=== PATIENT | female | born 1930 | race Caucasian/White ===

== ENCOUNTER 2016-08-05 18:36 | Emergency (ER) | payer MEDICARE, OTHER ==
[2016-08-05] MEDS ORDERED: MORPHINE 2 MG/ML SYRINGE IVP STA (19:42)
[2016-08-05] MEDS ORDERED: MORPHINE 2 MG/ML SYRINGE ONE (19:56)
[2016-08-05] MEDS ORDERED: IOPAMIDOL-300 100 ML VIAL IVP ONE (20:38)
[2016-08-05] MEDS ORDERED: oxyCODONE/ACET 5/325 Prepack 4 PO STA (21:23)
[2016-08-05] MEDS ORDERED: oxyCODONE/ACET 5/325 Prepack 4 PO ONE (21:27)
== END 2016-08-05 21:51 | disposition home or self-care (01) ==
DX: R07.89 Other chest pain (principal); M54.6 Pain in thoracic spine; I48.92 Unspecified atrial flutter; Z79.01 Long term (current) use of anticoagulants; I25.10 Atherosclerotic heart disease of native coronary artery without angina pectoris; I11.0 Hypertensive heart disease with heart failure; I50.9 Heart failure, unspecified; K21.9 Gastro-esophageal reflux disease without esophagitis; Z86.73 Personal history of transient ischemic attack (TIA), and cerebral infarction without residual deficits; Z87.891 Personal history of nicotine dependence
CPT/HCPCS: 36415; 71275; 80053; 82550; 82553; 83690; 84484; 85025; 85610; 85730; 93005; 93010; 96374; 99283; 99284; Q9967

== ENCOUNTER 2016-08-07 | Outpatient (CLI) | payer MEDICARE, OTHER | END 2016-08-07 13:55 | disposition critical access hospital (66) | CPT/HCPCS: A0425; A0427 ==

== ENCOUNTER 2016-08-07 14:22 | Emergency (ER) | payer MEDICARE, OTHER ==
[2016-08-07] MEDS ORDERED: SODIUM CHLORIDE 0.9% 500 ML IV ONE (14:26)
[2016-08-07] MEDS ORDERED: diltiaZEM INJ 5 MG/ML VIAL IVP STA ×2 (14:26→15:21)
[2016-08-07] MEDS ORDERED: diltiaZEM INJ 5 MG/ML VIAL ONE ×2 (14:33→15:34)
[2016-08-07] MEDS ORDERED: diltiaZEM CD 120 MG CAPSULE PO STA (15:19)
[2016-08-07] MEDS ORDERED: ACETAMINOPHEN 1,000 MG/100 ML 100 ML IV STA (15:24)
[2016-08-07] MEDS ORDERED: LIDOCAINE PATCH 5% TOP STA (15:24)
[2016-08-07] MEDS ORDERED: LIDOCAINE PATCH 5% TOP ONE (15:33)
[2016-08-07] MEDS ORDERED: ACETAMINOPHEN 1,000 MG/100 ML 100 ML IV ONE (15:33)
[2016-08-07] MEDS ORDERED: MORPHINE 2 MG/ML SYRINGE IVP STA (17:41)
[2016-08-07] MEDS ORDERED: ONDANSETRON 4 MG/2 ML VIAL IVP STA (17:41)
[2016-08-07] MEDS ORDERED: PROMETHAZINE INJ 12.5 MG in SODIUM CHLORIDE 0.9% 50 ML IV STA (17:42)
[2016-08-07] MEDS ORDERED: PROPOFOL 200 MG/20 ML VIAL IVP ONE (17:43)
[2016-08-07] MEDS ORDERED: PROMETHAZINE 25 MG/1 ML VIAL ONE (17:43)
[2016-08-07] MEDS ORDERED: MORPHINE 2 MG/ML SYRINGE ONE (17:43)
[2016-08-07] MEDS ORDERED: PROPOFOL 200 MG/20 ML VIAL IVP STA (18:02)
== END 2016-08-07 18:53 | disposition home or self-care (01) ==
DX: I48.92 Unspecified atrial flutter (principal); I48.91 Unspecified atrial fibrillation; Z79.01 Long term (current) use of anticoagulants; I11.0 Hypertensive heart disease with heart failure; I50.9 Heart failure, unspecified; E78.00 Pure hypercholesterolemia, unspecified; I25.10 Atherosclerotic heart disease of native coronary artery without angina pectoris; Z87.891 Personal history of nicotine dependence
CPT/HCPCS: 36415; 80048; 84443; 84484; 85025; 92960; 93005; 93010; 94770; 96365; 96375; 96376; 99284; A9270; J0131

== ENCOUNTER 2016-08-11 16:07 | Outpatient (CLI) | payer MEDICARE, OTHER | END 2016-08-11 16:08 | disposition home or self-care (01) | DX: M54.6 Pain in thoracic spine (principal) ==

== ENCOUNTER 2016-09-08 07:17 | Outpatient (CLI) | payer MEDICARE, OTHER | END 2016-09-08 07:18 | disposition home or self-care (01) | DX: R60.9 Edema, unspecified (principal); I50.9 Heart failure, unspecified; I10 Essential (primary) hypertension; E55.9 Vitamin D deficiency, unspecified; Z51.81 Encounter for therapeutic drug level monitoring; I48.91 Unspecified atrial fibrillation; E87.1 Hypo-osmolality and hyponatremia; E78.5 Hyperlipidemia, unspecified; D53.9 Nutritional anemia, unspecified ==

== ENCOUNTER 2016-10-04 19:39 | Emergency (ER) | payer MEDICARE, OTHER ==
[2016-10-04] MEDS ORDERED: SODIUM CHLORIDE 0.9% 500 ML IV ONE (21:36)
== END 2016-10-04 22:18 | disposition home or self-care (01) ==
DX: J06.9 Acute upper respiratory infection, unspecified (principal); I11.0 Hypertensive heart disease with heart failure; I50.9 Heart failure, unspecified; E78.00 Pure hypercholesterolemia, unspecified; I25.10 Atherosclerotic heart disease of native coronary artery without angina pectoris; K21.9 Gastro-esophageal reflux disease without esophagitis; Z86.73 Personal history of transient ischemic attack (TIA), and cerebral infarction without residual deficits; Z85.828 Personal history of other malignant neoplasm of skin; Z87.891 Personal history of nicotine dependence

== ENCOUNTER 2016-12-21 07:09 | Outpatient (CLI) | payer MEDICARE, OTHER ==
[2016-12-21 11:01] LABS: BASOPHILS # (AUTO) 0.1 10^3/uL (0.0-0.1); EOSINOPHILS # (AUTO) 0.2 10^3/uL (0.0-0.7); EOSINOPHILS % (AUTO) 3.4 %; HCT - HEMATOCRIT 34.9 % (37.0-47.0); HGB - HEMOGLOBIN 11.8 g/dL (12.0-16.0); LYMPHOCYTES # (AUTO) 1.9 10^3/uL (1.5-3.5); MEAN CORPUSCULAR HGB CONC 33.8 g/dL (32.0-36.0); MEAN CORPUSCULAR VOLUME 88.7 fL (81.0-99.0); MEAN PLATELET VOLUME 8.3 fL (7.9-10.8); MONOCYTES # (AUTO) 0.6 10^3/uL (0.0-1.0); MONOCYTES % (AUTO) 8.5 %; NEUTROPHILS # (AUTO) 3.8 10^3/uL (1.5-6.6); NEUTROPHILS % (AUTO) 58.1 %; RED BLOOD COUNT 3.93 10^6/uL (4.20-5.40); UNCORRECTED WHITE BLOOD COUNT 6.6 x10^3/uL; WHITE BLOOD COUNT 6.6 x10^3/uL (4.8-10.8)
[2016-12-21 11:18] LABS: BUN - BLOOD UREA NITROGEN 13 mg/dL (6-20); CALCIUM 9.9 mg/dL (8.5-10.3); CARBON DIOXIDE - CO2 29 mmol/L (21-32); CHLORIDE 94 mmol/L (101-111); CHOL/HDL RATIO 2.2 (<4.4); CHOLESTEROL 175 mg/dL; CREATININE 0.8 mg/dL (0.4-1.0); GFR - MDRD 68 (>89); GLUCOSE 111 mg/dL (70-100); HDL CHOLESTEROL 80 mg/dL; LDL/HDL RATIO 0.9 (<4.4); POTASSIUM 4.2 mmol/L (3.5-5.0); SODIUM 132 mmol/L (135-145); TRIGLYCERIDES 121 mg/dL; VLDL CHOLESTEROL 24 mg/dL
== END 2016-12-21 07:10 | disposition home or self-care (01) ==
LOC: LAB.F 07:09
PROVIDERS: ATTEND Internal Medicine Cardiovascular Disease
DX: I48.1 Persistent atrial fibrillation (principal); E78.5 Hyperlipidemia, unspecified; I10 Essential (primary) hypertension
CPT/HCPCS: 36415; 80048; 80061; 85025

== ENCOUNTER 2017-07-11 13:15 | Outpatient (CLI) | payer MEDICARE, OTHER ==
[2017-07-11 17:57] LABS: BASOPHILS % (AUTO) 0.4 %; EOSINOPHILS % (AUTO) 0.1 %; HGB - HEMOGLOBIN 11.5 g/dL (12.0-16.0); LYMPHOCYTES # (AUTO) 1.7 10^3/uL (1.5-3.5); MEAN CORPUSCULAR HEMOGLOBIN 29.5 pg (27.0-31.0); MEAN CORPUSCULAR HGB CONC 33.4 g/dL (32.0-36.0); MEAN CORPUSCULAR VOLUME 88.1 fL (81.0-99.0); MEAN PLATELET VOLUME 8.8 fL (7.9-10.8); MONOCYTES # (AUTO) 0.7 10^3/uL (0.0-1.0); MONOCYTES % (AUTO) 5.8 %; NEUTROPHILS # (AUTO) 9.4 10^3/uL (1.5-6.6); NEUTROPHILS % (AUTO) 79.7 %; PLT - PLATELET COUNT 299 10^3/uL (130-450); RED BLOOD COUNT 3.89 10^6/uL (4.20-5.40); RED CELL DISTRIBUTION WIDTH 12.9 % (12.0-15.0); WHITE BLOOD COUNT 11.8 x10^3/uL (4.8-10.8)
[2017-07-11 18:05] LABS: ALBUMIN 3.3 g/dL (3.2-5.5); ALBUMIN/GLOBULIN RATIO 1.1 (1.0-2.2); ALKALINE PHOSPHATASE 75 IU/L (42-121); ALT ALANINE AMINOTRANSFERASE 19 IU/L (10-60); AST ASPARTATE AMINOTRANSFERASE 20 IU/L (10-42); BILIRUBIN,TOTAL 0.3 mg/dL (0.2-1.0); BUN - BLOOD UREA NITROGEN 12 mg/dL (6-20); CALCIUM 8.7 mg/dL (8.5-10.3); CARBON DIOXIDE - CO2 31 mmol/L (21-32); CHLORIDE 96 mmol/L (101-111); CREATININE 0.8 mg/dL (0.4-1.0); GFR - MDRD 68 (>89); GLUCOSE 101 mg/dL (70-100); SODIUM 131 mmol/L (135-145); TOTAL PROTEIN 6.3 g/dL (6.7-8.2)
== END 2017-07-11 13:16 | disposition home or self-care (01) ==
LOC: LAB.F 13:15
PROVIDERS: ATTEND Family Medicine
DX: R11.0 Nausea (principal); G31.84 Mild cognitive impairment of uncertain or unknown etiology; I50.9 Heart failure, unspecified; R19.7 Diarrhea, unspecified; I10 Essential (primary) hypertension
CPT/HCPCS: 36415; 80053; 84443; 85025

== ENCOUNTER 2017-08-15 12:59 | Outpatient (CLI) | payer MEDICARE, OTHER ==
[2017-08-15 18:09] LABS: CALCIUM 9.2 mg/dL (8.5-10.3); CREATININE 0.8 mg/dL (0.4-1.0)
== END 2017-08-15 13:00 | disposition home or self-care (01) ==
LOC: LAB.F 12:59
PROVIDERS: ATTEND Family Medicine
DX: E87.6 Hypokalemia (principal); E87.1 Hypo-osmolality and hyponatremia
CPT/HCPCS: 36415; 80048

== ENCOUNTER 2017-09-29 11:56 | Outpatient (CLI) | payer MEDICARE, OTHER | END 2017-09-29 11:57 | disposition critical access hospital (66) | LOC: EMS 11:56 | PROVIDERS: ATTEND Surgery | DX: R42 Dizziness and giddiness (principal) | CPT/HCPCS: A0425; A0427 ==

== ENCOUNTER 2017-09-29 12:31 | Emergency (ER) | payer MEDICARE, OTHER ==
[2017-09-29 12:41] VITALS: BP 152/47
[2017-09-29] MEDS ORDERED: SODIUM CHLORIDE 0.9% 500 ML IV ONE (13:51)
--- NOTE | 2017-09-29 13:55 | ED Physician Documentation ---
History of Present Illness - Stated complaint Stated Complaint: DIZZY - Chief complaint Chief Complaint: General - History obtained from History obtained from: Patient, Family - History of Present Illness Timing: Other (This is a laya 86-year-old woman with history of atrial fibrillation on anticoagulation and also mild dementia and hypertension who has nonspecific lightheaded type dizziness that started today and just feels generally awful. Laying in bed now she is without complaints and specifically denies shortness of breath, headache, or chest pain.) Review of Systems Constitutional: denies: Fever, Chills Nose: reports: Reviewed and negative Cardiac: reports: Reviewed and negative Respiratory: reports: Reviewed and negative PD PAST MEDICAL HISTORY - Past Medical History Past Medical History: Yes Cardiovascular: Congestive heart failure, Hypertension, High cholesterol, Coronary artery disease, Other Respiratory: None Neuro: TIA Endocrine/Autoimmune: None GI: GERD : None HEENT: Macular degeneration, Chronic hearing loss Psych: None Musculoskeletal: None Derm: Eczema - Past Surgical History Past Surgical History: Yes General: Cholecystectomy, Colonoscopy, 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 Derm: Skin cancer surgery - Present Medications Home Medications: Ambulatory Orders Medication Instructions Recorded Confirmed Cholecalciferol (Vitamin D3) 2,000 unit PO DAILY 10/26/13 09/29/17 [Vitamin D] Esomeprazole Magnesium [Nexium] 40 mg PO DAILY 10/26/13 09/29/17 Lisinopril [Prinivil] 20 mg PO BID 10/26/13 09/29/17 Atorvastatin Calcium [Lipitor] 20 mg PO DAILY 01/03/16 09/29/17 Diltiazem HCl [Diltiazem 24Hr ER] 180 mg PO BID 01/03/16 09/29/17 Magnesium Oxide [Mag Ox] 400 mg PO DAILY #10 tablet 01/03/16 09/29/17 Apixaban [Eliquis] 5 mg PO BID 08/05/16 09/29/17 Ciprofloxacin HCl 250 mg PO BID #6 tablet 09/29/17 Donepezil HCl 1 tab PO DAILY 09/29/17 09/29/17 Memantine HCl 1 tab PO Q6HR 09/29/17 09/29/17 - Allergies Allergies/Adverse Reactions: Allergies Allergy/AdvReac Type Severity Reaction Status Date / Time tramadol Allergy Severe Unknown Verified 09/29/17 12:40 codeine Allergy Itching Verified 09/29/17 12:40 - Social History Does the pt smoke?: No Smoking Status: Never smoker Does the pt drink ETOH?: Yes Does the pt have substance abuse?: No - Immunizations Immunizations are current?: Yes PD ED PE NORMAL - Vitals Vital signs reviewed: Yes - General General: No acute distress, Well developed/nourished - HEENT HEENT: PERRL, EOMI, Ears normal, Moist mucous membranes - Neck Neck: Supple, no meningeal sign, No bony TTP - Cardiac Cardiac: RRR, No murmur - Respiratory Respiratory: No respiratory distress, Clear bilaterally - Abdomen Abdomen: Normal bowel sounds, Soft, Non tender - Back Back: No CVA TTP, No spinal TTP - Derm Derm: Normal color, Warm and dry - Extremities Extremities: No edema, No calf tenderness / cord - Neuro Neuro: Alert and oriented X 3, Normal speech - Psych Psych: Normal mood, Normal affect Results - Vitals Vitals: Vital Signs - 24 hr 09/29/17 12:38 Temperature 36.4 C L Heart Rate 63 Respiratory 18 Rate Blood Pressure 152/47 H O2 Saturation 93 Oxygen O2 Source [] Room air O2 Source Room air - EKG (time done) 1252 Rate: Rate (enter#) (57) Rhythm: NSR [place]: Normal Intervals: Normal [place] QRS: Normal Ischemia: Normal ST segments Computer interpretation: Agree with computer - Labs Labs: Laboratory Tests 09/29/17 09/29/17 09/29/17 15:02 15:02 15:05 WBC 10.4 RBC 3.78 L Hgb 11.6 L Hct 34.4 L MCV 91.0 MCH 30.8 MCHC 33.8 RDW 13.5 Plt Count 291 MPV 7.3 L Neut # 7.8 H Lymph # 1.7 [place] # 0.7 Eos # 0.1 Baso # 0.1 Absolute Nucleated RBC 0.01 Nucleated RBC % 0.0 Sodium 129 L Potassium 3.9 Chloride 91 L Carbon Dioxide 28 Anion Gap 10.0 BUN 12 Creatinine 0.8 Estimated GFR (MDRD) 68 L Glucose 137 H Calcium 9.3 Total Bilirubin 0.4 AST 18 ALT 15 Alkaline Phosphatase 79 Total Protein 7.2 Albumin 4.0 Globulin 3.2 Albumin/Globulin Ratio 1.3 Lipase 19 L Urine Color YELLOW Urine Clarity CLEAR Urine pH 6.5 Ur Specific [place] <=1.005 Urine Protein NEGATIVE Urine Glucose (UA) NEGATIVE Urine Ketones NEGATIVE Urine Occult Blood NEGATIVE Urine Nitrite POSITIVE H Urine Bilirubin NEGATIVE Urine Urobilinogen 0.2 (NORMAL) Ur Leukocyte Esterase NEGATIVE Urine RBC 0-5 Urine WBC 0-3 Ur Squamous Epith Cells FEW Squamous Urine Crystals 11-25 Uric Acid Urine Bacteria Many H Ur Microscopic Review INDICATED Urine Culture Comments INDICATED - Rads (name of study) CT Head Radiology: EMP read contemporaneously (NAD) PD MEDICAL DECISION MAKING - ED course ED course: 86-year-old with lightheaded type dizziness, ends other nonspecific complaints. Blood work is reassuring, she is found to have a UTI negative head CT. She was administered ciprofloxacin and a small fluid bolus with improvement in her symptoms. Departure - Departure Disposition: 01 Home, Self Care Clinical Impression: Dizziness Hypertension Qualifiers: Hypertension type: essential hypertension Qualified Code(s): I10 - Essential ( primary) hypertension UTI (urinary tract infection) Qualifiers: Urinary tract infection type: site unspecified Hematuria presence: without hematuria Qualified Code(s): N39.0 - Urinary tract infection, site not specified Condition: Good Record reviewed to determine appropriate education?: Yes Instructions: ED UTI Cystitis Female Prescriptions: Ciprofloxacin HCl 250 mg PO BID #6 tablet Comments: Call your doctor to arrange a follow-up appointment, make the next available appointment. In the interim, return anytime if worse or if new symptoms develop. We will culture your urine, the results should be done in 48-72 hours. If an antibiotic change is necessary we will call you. Return if worse in the meantime, especially if you develop increasing flank pain, fevers, or cannot keep down the medication.
--- NOTE | 2017-09-29 14:32 | CT Preliminary Report ---
Exam: CT HEAD W/O IMPRESSION: 1. Negative for an acute or focal intracranial abnormality. Mild nonfocal white matter disease. 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 [facility] SITE ID: [id number]
--- NOTE | 2017-09-29 14:33 | CT Report ---
EXAM: CT HEAD EXAM DATE: 09/29/2017 02:15 PM. CLINICAL HISTORY: Dizzy anticoagulated. COMPARISON: None. TECHNIQUE: Multiaxial CT images were obtained from the foramen magnum to the vertex. Reformats: Coron al. IV contrast: None. In accordance with CT protocol optimization, one or more of the following dose reduction techniques w ere utilized for this exam: automated exposure control, adjustment of mA and/or KV based on patient s ize, or use of iterative reconstructive technique. FINDINGS: Parenchyma: There is mild diffuse white matter hypodensity. Negative for acute intracranial hemorrhag e. There is no midline shift or mass effect. Extraaxial Spaces: No subdural or epidural collections identified. Ventricles: Normal in size and position. Sinuses and Orbits: Imaged paranasal sinuses, orbits, and mastoids show no significant abnormality. Bones: No evidence of fracture or calvarial defect. Other: None. IMPRESSION: 1. Negative for an acute or focal intracranial abnormality. Mild nonfocal white matter disease. 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 [facility] Referring Provider Line: [phone] SITE ID: [id number]
[2017-09-29 15:05] LABS: BASOPHILS # (AUTO) 0.1 10^3/uL (0.0-0.1); BASOPHILS % (AUTO) 0.9 %; EOSINOPHILS # (AUTO) 0.1 10^3/uL (0.0-0.7); EOSINOPHILS % (AUTO) 0.5 %; HGB - HEMOGLOBIN 11.6 g/dL (12.0-16.0); LYMPHOCYTES # (AUTO) 1.7 10^3/uL (1.5-3.5); LYMPHOCYTES % (AUTO) 16.6 %; MEAN CORPUSCULAR HEMOGLOBIN 30.8 pg (27.0-31.0); MEAN CORPUSCULAR HGB CONC 33.8 g/dL (32.0-36.0); MEAN PLATELET VOLUME 7.3 fL (7.9-10.8); MONOCYTES # (AUTO) 0.7 10^3/uL (0.0-1.0); MONOCYTES % (AUTO) 6.9 %; NEUTROPHILS # (AUTO) 7.8 10^3/uL (1.5-6.6); NEUTROPHILS % (AUTO) 75.1 %; PLT - PLATELET COUNT 291 10^3/uL (130-450); RED BLOOD COUNT 3.78 10^6/uL (4.20-5.40); RED CELL DISTRIBUTION WIDTH 13.5 % (12.0-15.0); WHITE BLOOD COUNT 10.4 x10^3/uL (4.8-10.8)
[2017-09-29 15:18] LABS: ALBUMIN/GLOBULIN RATIO 1.3 (1.0-2.2); BILIRUBIN,TOTAL 0.4 mg/dL (0.2-1.0); CALCIUM 9.3 mg/dL (8.5-10.3); CREATININE 0.8 mg/dL (0.4-1.0); TOTAL PROTEIN 7.2 g/dL (6.7-8.2)
[2017-09-29 15:20] LABS: BILIRUBIN,URINE NEGATIVE (NEGATIVE); GLUCOSE, URINE (UA) NEGATIVE (NEGATIVE); KETONES,URINE (UA) NEGATIVE (NEGATIVE); LEUKOCYTE ESTERASE, URINE NEGATIVE (NEGATIVE); NITRITE,URINE POSITIVE (NEGATIVE); OCCULT BLOOD,URINE NEGATIVE (NEGATIVE); PH,URINE 6.5 PH (5.0-7.5); PROTEIN,URINE NEGATIVE (NEGATIVE); UROBILINOGEN,URINE 0.2 (NORMAL) E.U./dL (NORMAL)
[2017-09-29 15:35] LABS: CLARITY,URINE CLEAR (CLEAR)
[2017-09-29 15:48] LABS: BACTERIA,URINE Many /HPF (None Seen); CRYSTALS,URINE 11-25 Uric Acid /LPF; RBC,URINE 0-5 /HPF (0-5); SQUAMOUS EPITHELIAL CELL,UR FEW Squamous (<= Few)
[2017-09-29] MEDS ORDERED: CIPROFLOXACIN 250 MG TABLET PO STA (15:49)
== END 2017-09-29 16:21 | disposition home or self-care (01) ==
LOC: EDUNIT# → ED 12:31
DX: R42 Dizziness and giddiness (principal); N39.0 Urinary tract infection, site not specified; I48.91 Unspecified atrial fibrillation; I11.0 Hypertensive heart disease with heart failure; I50.9 Heart failure, unspecified; I25.10 Atherosclerotic heart disease of native coronary artery without angina pectoris; E78.00 Pure hypercholesterolemia, unspecified; Z79.01 Long term (current) use of anticoagulants; Z86.73 Personal history of transient ischemic attack (TIA), and cerebral infarction without residual deficits
CPT/HCPCS: 36415; 70450; 80053; 81001; 83690; 85025; 87086; 87181; 93005; 99284; A9270; 81003

== ENCOUNTER 2017-10-06 00:42 | Emergency (ER) | payer MEDICARE, OTHER ==
[2017-10-06 01:19] LABS: BASOPHILS # (AUTO) 0.1 10^3/uL (0.0-0.1); BASOPHILS % (AUTO) 0.6 %; EOSINOPHILS # (AUTO) 0.1 10^3/uL (0.0-0.7); EOSINOPHILS % (AUTO) 1.1 %; HGB - HEMOGLOBIN 10.6 g/dL (12.0-16.0); LYMPHOCYTES # (AUTO) 1.6 10^3/uL (1.5-3.5); LYMPHOCYTES % (AUTO) 13.8 %; MEAN CORPUSCULAR HGB CONC 34.8 g/dL (32.0-36.0); MEAN CORPUSCULAR VOLUME 91.9 fL (81.0-99.0); MEAN PLATELET VOLUME 7.5 fL (7.9-10.8); MONOCYTES # (AUTO) 0.8 10^3/uL (0.0-1.0); MONOCYTES % (AUTO) 6.7 %; NEUTROPHILS % (AUTO) 77.8 %; PLT - PLATELET COUNT 299 10^3/uL (130-450); RED BLOOD COUNT 3.32 10^6/uL (4.20-5.40); RED CELL DISTRIBUTION WIDTH 13.4 % (12.0-15.0); WHITE BLOOD COUNT 11.6 x10^3/uL (4.8-10.8)
[2017-10-06 01:30] LABS: ALBUMIN/GLOBULIN RATIO 1.4 (1.0-2.2); BILIRUBIN,TOTAL 0.2 mg/dL (0.2-1.0); CALCIUM 8.9 mg/dL (8.5-10.3); TOTAL PROTEIN 6.8 g/dL (6.7-8.2)
[2017-10-06] MEDS ORDERED: SODIUM CHLORIDE 0.9% 1,000 ML IV ONE (01:44)
[2017-10-06 02:37] VITALS: BP 118/45
--- NOTE | 2017-10-06 02:45 | ED Physician Documentation ---
History of Present Illness - Stated complaint Stated Complaint: RAPID HEART RATE - Chief complaint Chief Complaint: Cardiac - History obtained from History obtained from: Patient, Family - History of Present Illness Timing: Today - Additonal information Additional information: Patient is a 86 year old female with a history of afib who is presenting to the emergency department for rapid heart rate. Patient states that she got real upset earlier because the phone and the computer were not working properly. Patient felt like her heart was racing so she wanted to come to the hospital. While enroute the heart rate slowed down but they had already started driving so they decided to come. Upon initial evaluation in the emergency department patient's hear rate had slowed down but patient stated that she did not feel great. Patient was currently on antibiotics for a uti. Review of Systems Constitutional: denies: Fever, Chills Eyes: reports: Reviewed and negative Ears: reports: Reviewed and negative Nose: reports: Reviewed and negative Throat: reports: Reviewed and negative Cardiac: reports: Palpitations. denies: Chest pain / pressure, Pedal edema, Calf pain Respiratory: denies: Dyspnea, Cough GI: denies: Abdominal Pain, Nausea, Vomiting : denies: Dysuria, Frequency Skin: denies: Rash Neurologic: denies: Generalized weakness, Focal weakness PD PAST MEDICAL HISTORY - Past Medical History Past Medical History: Yes Cardiovascular: Congestive heart failure, Hypertension, High cholesterol, Coronary artery disease, Atrial fibrillation, Other Respiratory: None Neuro: TIA Endocrine/Autoimmune: None GI: GERD : None HEENT: Macular degeneration, Chronic hearing loss Psych: None Musculoskeletal: None Derm: Eczema - Past Surgical History Past Surgical History: Yes General: Cholecystectomy, Colonoscopy, 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 Derm: Skin cancer surgery - Present Medications Home Medications: Ambulatory Orders Medication Instructions Recorded Confirmed Cholecalciferol (Vitamin D3) 2,000 unit PO DAILY 10/26/13 09/29/17 [Vitamin D] Esomeprazole Magnesium [Nexium] 40 mg PO DAILY 10/26/13 09/29/17 Lisinopril [Prinivil] 20 mg PO BID 10/26/13 09/29/17 Atorvastatin Calcium [Lipitor] 20 mg PO DAILY 01/03/16 09/29/17 Diltiazem HCl [Diltiazem 24Hr ER] 180 mg PO BID 01/03/16 09/29/17 Magnesium Oxide [Mag Ox] 400 mg PO DAILY #10 tablet 01/03/16 09/29/17 Apixaban [Eliquis] 5 mg PO BID 08/05/16 09/29/17 Ciprofloxacin HCl 250 mg PO BID #6 tablet 09/29/17 Donepezil HCl 1 tab PO DAILY 09/29/17 09/29/17 Memantine HCl 1 tab PO Q6HR 09/29/17 09/29/17 - Allergies Allergies/Adverse Reactions: Allergies Allergy/AdvReac Type Severity Reaction Status Date / Time tramadol Allergy Severe Unknown Verified 10/06/17 00:55 codeine Allergy Itching Verified 10/06/17 00:55 - Social History Does the pt smoke?: No Smoking Status: Never smoker Does the pt drink ETOH?: Yes Does the pt have substance abuse?: No - Immunizations Immunizations are current?: Yes - POLST Patient has POLST: No PD ED PE NORMAL - Vitals Vital signs reviewed: Yes - General General: Alert and oriented X 3, No acute distress - HEENT HEENT: Atraumatic, PERRL - Neck Neck: Supple, no meningeal sign - Cardiac Cardiac: RRR, No murmur - Respiratory Respiratory: No respiratory distress, Clear bilaterally - Abdomen Abdomen: Soft, Non tender, Non distended - Derm Derm: Normal color, No rash - Neuro Neuro: Alert and oriented X 3, No motor deficit, Normal speech Eye Opening: Spontaneous PD ED PE EXPANDED - HEENT HEENT: Dry mucous membranes Results - Vitals Vitals: Vital Signs - 24 hr 10/06/17 10/06/17 00:52 02:36 Temperature 36.0 C L Heart Rate 61 55 L Respiratory 18 15 Rate Blood Pressure 166/50 H 118/45 L O2 Saturation 97 93 Oxygen O2 Source [With Activity] Room air O2 Source Room air - EKG (time done) 0052 Rate: Rate (enter#) (59) Rhythm: NSR [place]: Normal Intervals: Normal [place] Ischemia: Normal ST segments Compare to prior EKG: Unchanged from prior EKG - Labs Labs: Laboratory Tests 10/06/17 10/06/17 10/06/17 01:05 01:05 01:05 WBC 11.6 H RBC 3.32 L Hgb 10.6 L Hct 30.5 L MCV 91.9 MCH 32.0 H MCHC 34.8 RDW 13.4 Plt Count 299 MPV 7.5 L Neut # 9.0 H Lymph # 1.6 [place] # 0.8 Eos # 0.1 Baso # 0.1 Absolute Nucleated RBC 0.00 Nucleated RBC % 0.0 Sodium 122 L Potassium 3.9 Chloride 89 L Carbon Dioxide 24 Anion Gap 9.0 BUN 15 Creatinine 1.0 Estimated GFR (MDRD) 52 L Glucose 156 H Calcium 8.9 Total Bilirubin 0.2 AST 21 ALT 17 Alkaline Phosphatase 75 Troponin I < 0.04 Total Protein 6.8 Albumin 4.0 Globulin 2.8 Albumin/Globulin Ratio 1.4 Lipase 17 L PD MEDICAL DECISION MAKING - ED course Complexity details: reviewed old records, reviewed results, re-evaluated patient , considered differential, d/w patient, d/w family ED course: Patient was seen and examined at bedside. ekg was performed and was normal sinus. labs were drawn and previous results were reviewed. Patient's uti was susceptible to bactrim. Patient's labs were consistent with dehydration and patient was treated with a liter bolus. Patient and were made aware of the findings and the importance of increased hydration. Patient was able to tolerate PO without difficulty. patient required no further inpatient work up and was stable for discharge with outpatient follow up. Departure - Departure Disposition: 01 Home, Self Care Clinical Impression: Dehydration Condition: Good Instructions: ED Dehydration Follow-Up: primary,care provider [Other] - Within 1 week Comments: Your diagnostics today revealed mild dehyration. As you fight your urinary tract infection you will need to drink extra fluids. You should finish your course of antibiotics. You should follow up with your doctor if your symptoms persist. You may return to the emergency department at any time for new, worsening or uncontrollable symptoms. Discharge Date/Time: 10/06/17 03:01
== END 2017-10-06 03:01 | disposition home or self-care (01) ==
LOC: ED 00:42
DX: E86.0 Dehydration (principal); I48.91 Unspecified atrial fibrillation; Z79.01 Long term (current) use of anticoagulants; I11.0 Hypertensive heart disease with heart failure; I50.9 Heart failure, unspecified; I25.10 Atherosclerotic heart disease of native coronary artery without angina pectoris; E78.00 Pure hypercholesterolemia, unspecified; K21.9 Gastro-esophageal reflux disease without esophagitis; Z86.73 Personal history of transient ischemic attack (TIA), and cerebral infarction without residual deficits
CPT/HCPCS: 36415; 80053; 83690; 84484; 85025; 93005; 96360; 99283; 99284

== ENCOUNTER 2017-10-11 13:45 | Outpatient (CLI) | payer MEDICARE, OTHER ==
[2017-10-11 17:43] LABS: BILIRUBIN,URINE NEGATIVE (NEGATIVE); GLUCOSE, URINE (UA) NEGATIVE (NEGATIVE); KETONES,URINE (UA) TRACE mg/dL (NEGATIVE); LEUKOCYTE ESTERASE, URINE SMALL (NEGATIVE); NITRITE,URINE NEGATIVE (NEGATIVE); OCCULT BLOOD,URINE NEGATIVE (NEGATIVE); PH,URINE 5.5 PH (5.0-7.5); PROTEIN,URINE NEGATIVE (NEGATIVE); UROBILINOGEN,URINE 0.2 (NORMAL) E.U./dL (NORMAL)
[2017-10-11 17:52] LABS: BACTERIA,URINE None Seen /HPF (None Seen); CLARITY,URINE CLEAR (CLEAR); RBC,URINE 0-5 /HPF (0-5); SQUAMOUS EPITHELIAL CELL,UR MOD Squamous (<= Few)
== END 2017-10-11 13:46 | disposition home or self-care (01) ==
LOC: LAB.R 13:45
PROVIDERS: ATTEND Internal Medicine
DX: N30.00 Acute cystitis without hematuria (principal)
CPT/HCPCS: 81001; 87086

== ENCOUNTER 2017-10-11 13:50 | Outpatient (CLI) | payer MEDICARE, OTHER ==
[2017-10-11 17:51] LABS: CALCIUM 9.4 mg/dL (8.5-10.3)
[2017-10-11 18:22] LABS: BASOPHILS # (AUTO) 0.1 10^3/uL (0.0-0.1); EOSINOPHILS # (AUTO) 0.2 10^3/uL (0.0-0.7); LYMPHOCYTES # (AUTO) 1.9 10^3/uL (1.5-3.5); MONOCYTES # (AUTO) 0.7 10^3/uL (0.0-1.0); NEUTROPHILS # (AUTO) 7.3 10^3/uL (1.5-6.6)
[2017-10-11 18:57] LABS: BASOPHILS % (AUTO) 0.9 %; EOSINOPHILS % (AUTO) 1.8 %; HGB - HEMOGLOBIN 11.6 g/dL (12.0-16.0); LYMPHOCYTES % (AUTO) 18.7 %; MEAN CORPUSCULAR HEMOGLOBIN 30.7 pg (27.0-31.0); MEAN CORPUSCULAR HGB CONC 32.8 g/dL (32.0-36.0); MEAN CORPUSCULAR VOLUME 93.4 fL (81.0-99.0); MEAN PLATELET VOLUME 7.7 fL (7.9-10.8); MONOCYTES % (AUTO) 7.1 %; NEUTROPHILS % (AUTO) 71.5 %; PLT - PLATELET COUNT 388 10^3/uL (130-450); RED BLOOD COUNT 3.77 10^6/uL (4.20-5.40); RED CELL DISTRIBUTION WIDTH 12.8 % (12.0-15.0); WHITE BLOOD COUNT 10.2 x10^3/uL (4.8-10.8)
== END 2017-10-11 13:51 | disposition home or self-care (01) ==
LOC: LAB.F 13:50
PROVIDERS: ATTEND Internal Medicine
DX: N30.00 Acute cystitis without hematuria (principal); R53.81 Other malaise
CPT/HCPCS: 36415; 80048; 81001; 84443; 85025; 87086

== ENCOUNTER 2017-10-22 12:02 | Outpatient (CLI) | payer MEDICARE, OTHER ==
[2017-10-22 17:42] LABS: BILIRUBIN,URINE NEGATIVE (NEGATIVE); GLUCOSE, URINE (UA) NEGATIVE (NEGATIVE); KETONES,URINE (UA) NEGATIVE (NEGATIVE); LEUKOCYTE ESTERASE, URINE SMALL (NEGATIVE); NITRITE,URINE NEGATIVE (NEGATIVE); OCCULT BLOOD,URINE NEGATIVE (NEGATIVE); PH,URINE 6.5 PH (5.0-7.5); PROTEIN,URINE NEGATIVE (NEGATIVE); UROBILINOGEN,URINE 0.2 (NORMAL) E.U./dL (NORMAL)
[2017-10-22 17:43] LABS: CLARITY,URINE CLEAR (CLEAR)
[2017-10-22 17:48] LABS: BACTERIA,URINE None Seen /HPF (None Seen); RBC,URINE None Seen /HPF (0-5); SQUAMOUS EPITHELIAL CELL,UR MANY Squamous (<= Few)
[2017-10-22 17:57] LABS: CALCIUM 8.8 mg/dL (8.5-10.3); CREATININE 0.7 mg/dL (0.4-1.0)
== END 2017-10-22 12:03 | disposition home or self-care (01) ==
LOC: LAB.F 12:02
PROVIDERS: ATTEND Internal Medicine
DX: E87.1 Hypo-osmolality and hyponatremia (principal); N30.00 Acute cystitis without hematuria
CPT/HCPCS: 36415; 80048; 81001; 84300; 87086

== ENCOUNTER 2017-11-03 20:30 | Outpatient (CLI) | payer MEDICARE, OTHER | END 2017-11-03 20:31 | disposition critical access hospital (66) | LOC: EMS 20:30 | PROVIDERS: ATTEND Surgery | DX: R10.9 Unspecified abdominal pain (principal); M54.5 Low back pain; R11.0 Nausea | CPT/HCPCS: A0425; A0429 ==

== ENCOUNTER 2017-11-03 21:09 | Emergency (ER) | payer MEDICARE, OTHER ==
[2017-11-03 21:29] LABS: BASOPHILS # (AUTO) 0.1 10^3/uL (0.0-0.1); BASOPHILS % (AUTO) 0.5 %; EOSINOPHILS # (AUTO) 0.2 10^3/uL (0.0-0.7); EOSINOPHILS % (AUTO) 1.1 %; HGB - HEMOGLOBIN 11.3 g/dL (12.0-16.0); LYMPHOCYTES # (AUTO) 2.1 10^3/uL (1.5-3.5); LYMPHOCYTES % (AUTO) 14.3 %; MEAN CORPUSCULAR HEMOGLOBIN 32.4 pg (27.0-31.0); MEAN CORPUSCULAR HGB CONC 34.2 g/dL (32.0-36.0); MEAN CORPUSCULAR VOLUME 94.8 fL (81.0-99.0); MEAN PLATELET VOLUME 7.4 fL (7.9-10.8); MONOCYTES # (AUTO) 0.9 10^3/uL (0.0-1.0); NEUTROPHILS # (AUTO) 11.6 10^3/uL (1.5-6.6); NEUTROPHILS % (AUTO) 78.1 %; PLT - PLATELET COUNT 278 10^3/uL (130-450); RED BLOOD COUNT 3.48 10^6/uL (4.20-5.40); RED CELL DISTRIBUTION WIDTH 12.5 % (12.0-15.0); WHITE BLOOD COUNT 14.9 x10^3/uL (4.8-10.8)
[2017-11-03 21:45] LABS: ALBUMIN/GLOBULIN RATIO 1.4 (1.0-2.2); BILIRUBIN,TOTAL 0.8 mg/dL (0.2-1.0); CALCIUM 9.3 mg/dL (8.5-10.3); CREATININE 0.7 mg/dL (0.4-1.0); TOTAL PROTEIN 6.9 g/dL (6.7-8.2)
--- NOTE | 2017-11-03 21:58 | ED Physician Documentation ---
History of Present Illness - Stated complaint Stated Complaint: ABD PAIN, CRAMPING, NAUSEA - Chief complaint Chief Complaint: Abd Pain - History obtained from History obtained from: Patient, Family - History of Present Illness Timing: Today Radiates to: to back Improved by: BM (in ED while awaiting eval) Worsened by: no exacerbating factors - Additonal information Additional information: patient is vague historian, frequently answers "I just don't know" or "I just feel sick". After much discussion, it seems she has been having upper abdominal discomfort with bloating sensation since earlier this evening with nausea, mild dyspnea. No apparent exacerbating factors, but does feel significant improvement after BM while awaiting evaluation in ED. Review of Systems Constitutional: denies: Fever, Chills, Sweats Cardiac: denies: Chest pain / pressure, Palpitations Respiratory: reports: Dyspnea (mild, intermittent) GI: reports: Abdominal Pain, Abdominal Swelling, Nausea. 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 Derm: Skin cancer surgery - Present Medications Home Medications: Ambulatory Orders Medication Instructions Recorded Confirmed Cholecalciferol (Vitamin D3) 2,000 unit PO DAILY 10/26/13 09/29/17 [Vitamin D] Esomeprazole Magnesium [Nexium] 40 mg PO DAILY 10/26/13 09/29/17 Lisinopril [Prinivil] 20 mg PO BID 10/26/13 09/29/17 Atorvastatin Calcium [Lipitor] 20 mg PO DAILY 01/03/16 09/29/17 Diltiazem HCl [Diltiazem 24Hr ER] 180 mg PO BID 01/03/16 09/29/17 Magnesium Oxide [Mag Ox] 400 mg PO DAILY #10 tablet 01/03/16 09/29/17 Apixaban [Eliquis] 5 mg PO BID 08/05/16 09/29/17 Ciprofloxacin HCl 250 mg PO BID #6 tablet 09/29/17 Donepezil HCl 1 tab PO DAILY 09/29/17 09/29/17 Memantine HCl 1 tab PO Q6HR 09/29/17 09/29/17 Calcitonin,Cameron,Synthetic 11/03/17 [Calcitonin-Cameron] Calcium Carbonate [[id number]] 500 mg PO 11/03/17 Clonidine HCl [Clonidine HCl ER] 0.1 mg PO 11/03/17 Iron,Carbonyl [Iron Chews] 11/03/17 Nitrofurantoin [Macrobid] 100 mg PO BID #13 capsule 11/04/17 - Allergies Allergies/Adverse Reactions: Allergies Allergy/AdvReac Type Severity Reaction Status Date / Time tramadol Allergy Severe Unknown Verified 11/03/17 21:17 codeine Allergy Itching Verified 11/03/17 21:17 - Social History Does the pt smoke?: No Smoking Status: Never smoker Does the pt drink ETOH?: Yes Does the pt have substance abuse?: No - Immunizations Immunizations are current?: Yes - POLST Patient has POLST: No PD ED PE NORMAL - Vitals Vital signs reviewed: Yes - General General: Alert and oriented X 3, No acute distress, Well developed/nourished - HEENT HEENT: Moist mucous membranes - Neck Neck: Supple, no meningeal sign - Cardiac Cardiac: RRR, No murmur - Respiratory Respiratory: No respiratory distress, Clear bilaterally - Abdomen Abdomen: Soft, Non tender - Back Back: No CVA TTP - Derm Derm: Normal color, Warm and dry - Extremities Extremities: No edema Results - Vitals Vitals: Vital Signs - 24 hr 11/03/17 11/03/17 21:11 23:25 Temperature 36.6 C 36.5 C Heart Rate 54 L 54 L Respiratory 16 20 Rate Blood Pressure 161/38 H 144/43 H O2 Saturation 97 95 Oxygen O2 Source [] Room air O2 Source Room air - Labs Labs: Microbiology 11/03/17 22:00 Clostridium difficile (PCR) - Final Stool 11/03/17 22:00 Occult Blood - Final Stool Laboratory Tests 11/03/17 11/03/17 11/03/17 21:26 21:26 22:08 WBC 14.9 H RBC 3.48 L Hgb 11.3 L Hct 33.0 L MCV 94.8 MCH 32.4 H MCHC 34.2 RDW 12.5 Plt Count 278 MPV 7.4 L Neut # 11.6 H Lymph # 2.1 [place] # 0.9 Eos # 0.2 Baso # 0.1 Absolute Nucleated RBC 0.00 Nucleated RBC % 0.0 Sodium 133 L Potassium 3.5 Chloride 97 L Carbon Dioxide 26 Anion Gap 10.0 BUN 15 Creatinine 0.7 Estimated GFR (MDRD) 79 L Glucose 116 H Calcium 9.3 Total Bilirubin 0.8 AST 228 H ALT 124 H Alkaline Phosphatase 117 Total Protein 6.9 Albumin 4.0 Globulin 2.9 Albumin/Globulin Ratio 1.4 Lipase 373 H Urine Color YELLOW Urine Clarity [place] Urine pH 5.0 Ur Specific [place] 1.020 Urine Protein NEGATIVE Urine Glucose (UA) NEGATIVE Urine Ketones NEGATIVE Urine Occult Blood NEGATIVE Urine Nitrite NEGATIVE Urine Bilirubin NEGATIVE Urine Urobilinogen 0.2 (NORMAL) Ur Leukocyte Esterase MODERATE H Urine RBC 0-5 Urine WBC >25 H Ur Squamous Epith Cells MANY Squamous H Urine Bacteria Many H Urine Casts 3-5 Hyaline Casts Ur Microscopic Review INDICATED Urine Culture Comments NOT INDICATED - Rads (name of study) CT A/P Radiology: Prelim report reviewed, See rad report PD MEDICAL DECISION MAKING - ED course Complexity details: reviewed results, re-evaluated patient, considered differential, d/w patient, d/w family ED course: On reevaluation, patient appears comfortable/NAD, asks to be discharged home. She says she feels well. Results d/w patient and family (in ED present at bedside). I emphasized the abnormal lipase, liver enzymes, and WBC; although these are all elevated, not to an extent that would indicate further emergent or inpatient treatment or study, particularly based on how well she is feeling. I instructed her to return if worse and recommended a bland diet for a few days (in case she has early pancreatitis with the mildly elevated lipase). I also emphasized the need to f/u with PMD, as further testing (or retesting) might be warranted. Lastly, UA suggests UTI. Although squamous cells indicate this might be contaminated specimen, there are >25 WBC/HPF and many bacteria, and thus will rx antibiotic to cover possible UTI. Macrobid picked based on most recent urine culture result). Departure - Departure Disposition: 01 Home, Self Care Clinical Impression: UTI (urinary tract infection) Qualifiers: Urinary tract infection type: acute cystitis Hematuria presence: with hematuria Qualified Code(s): N30.01 - Acute cystitis with hematuria Condition: Good Instructions: ED UTI Cystitis Female Follow-Up: Jefe Brar MD [Primary Care Provider] - Within 1 week Prescriptions: Nitrofurantoin [Macrobid] 100 mg PO BID #13 capsule Discharge Date/Time: 11/04/17 00:18
[2017-11-03 22:12] LABS: BILIRUBIN,URINE NEGATIVE (NEGATIVE); GLUCOSE, URINE (UA) NEGATIVE (NEGATIVE); KETONES,URINE (UA) NEGATIVE (NEGATIVE); LEUKOCYTE ESTERASE, URINE MODERATE (NEGATIVE); NITRITE,URINE NEGATIVE (NEGATIVE); OCCULT BLOOD,URINE NEGATIVE (NEGATIVE); PROTEIN,URINE NEGATIVE (NEGATIVE); UROBILINOGEN,URINE 0.2 (NORMAL) E.U./dL (NORMAL)
[2017-11-03] MEDS ORDERED: IOPAMIDOL-300 100 ML VIAL ONE (22:16)
[2017-11-03] MEDS ORDERED: IOPAMIDOL-300 100 ML VIAL IVP ONE (22:29)
[2017-11-03 22:31] LABS: CLARITY,URINE HAZY (CLEAR)
[2017-11-03 22:32] LABS: BACTERIA,URINE Many /HPF (None Seen); CASTS, URINE 3-5 Hyaline Casts /LPF; RBC,URINE 0-5 /HPF (0-5); SQUAMOUS EPITHELIAL CELL,UR MANY Squamous (<= Few)
--- NOTE | 2017-11-03 23:13 | CT Preliminary Report ---
Exam: CT ABDOMEN/PELVIS W/ IMPRESSION: 1. Cholecystectomy, with worsening ductal dilatation, noting 2 cm common bile duct diameter. 2. Moderate diverticulosis without diverticulitis. 3. Advanced atherosclerotic calcification. 4. Chronic L1 compression fracture, worse than prior exam. [facility] SITE ID: [id number]
--- NOTE | 2017-11-03 23:13 | CT Report ---
EXAM: CT ABDOMEN AND PELVIS EXAM DATE: 11/03/2017 10:44 PM. CLINICAL HISTORY: Epigastric pain. Bloating. COMPARISONS: 10/26/2013. TECHNIQUE: Routine helical CT imaging was performed through the abdomen and pelvis. IV contrast: 100 cc of Isovue-300. Enteric contrast: No. Reconstructions: Coronal and sagittal. In accordance with CT protocol optimization, one or more of the following dose reduction techniques w ere utilized for this exam: automated exposure control, adjustment of mA and/or KV based on patient s ize, or use of iterative reconstructive technique. FINDINGS: Lung Bases: Unremarkable. Liver: Normal. No masses. Gallbladder/Bile Ducts: Cholecystectomy. Worsening ductal dilatation, with 2 cm common bile duct diam eter. Spleen: Normal. Pancreas: Normal. Adrenal Glands: Normal. Kidneys: Normal. No masses or hydronephrosis. Peritoneal Cavity/Bowel: Moderate diverticulosis. No free fluid, free air or adenopathy. No masses or acute inflammatory process. The appendix is well visualized and normal. Pelvic Organs: Normal. The bladder and visualized pelvic organs are within normal limits. Vasculature: No aortic aneurysm. Advanced atherosclerotic calcification. Bones: S-shaped scoliosis. Chronic L1 compression fracture, worse than prior. Other: None. IMPRESSION: 1. Cholecystectomy, with worsening ductal dilatation, noting 2 cm common bile duct diameter. 2. Moderate diverticulosis without diverticulitis. 3. Advanced atherosclerotic calcification. 4. Chronic L1 compression fracture, worse than prior exam. [facility] Referring Provider Line: [phone] SITE ID: [id number]
[2017-11-03 23:26] VITALS: BP 144/43
[2017-11-04] MEDS ORDERED: NITROFURANTOIN MACRO 100 MG CAPSULE PO STA (00:11)
== END 2017-11-04 00:18 | disposition home or self-care (01) ==
LOC: EDUNIT# → ED 21:09
DX: N30.01 Acute cystitis with hematuria (principal); I11.0 Hypertensive heart disease with heart failure; I50.9 Heart failure, unspecified; E78.00 Pure hypercholesterolemia, unspecified; I25.10 Atherosclerotic heart disease of native coronary artery without angina pectoris; I48.91 Unspecified atrial fibrillation; K21.9 Gastro-esophageal reflux disease without esophagitis; Z86.73 Personal history of transient ischemic attack (TIA), and cerebral infarction without residual deficits; Z79.01 Long term (current) use of anticoagulants
CPT/HCPCS: 74177; 80053; 81001; 82270; 83690; 85025; 87493; 93005; 99283; 99284; A9270; Q9967; 36415; 81003; 87086

== ENCOUNTER 2018-05-06 08:48 | Outpatient (CLI) | payer MEDICARE, OTHER ==
[2018-05-06 18:17] LABS: BASOPHILS # (AUTO) 0.1 10^3/uL (0.0-0.1); BASOPHILS % (AUTO) 1.1 %; EOSINOPHILS # (AUTO) 0.1 10^3/uL (0.0-0.7); EOSINOPHILS % (AUTO) 1.7 %; HGB - HEMOGLOBIN 11.7 g/dL (12.0-16.0); LYMPHOCYTES # (AUTO) 1.8 10^3/uL (1.5-3.5); LYMPHOCYTES % (AUTO) 24.8 %; MEAN CORPUSCULAR HEMOGLOBIN 30.7 pg (27.0-31.0); MEAN CORPUSCULAR HGB CONC 33.2 g/dL (32.0-36.0); MEAN CORPUSCULAR VOLUME 92.4 fL (81.0-99.0); MEAN PLATELET VOLUME 8.4 fL (7.9-10.8); MONOCYTES # (AUTO) 0.6 10^3/uL (0.0-1.0); MONOCYTES % (AUTO) 7.8 %; NEUTROPHILS # (AUTO) 4.8 10^3/uL (1.5-6.6); NEUTROPHILS % (AUTO) 64.6 %; PLT - PLATELET COUNT 296 10^3/uL (130-450); RED BLOOD COUNT 3.81 10^6/uL (4.20-5.40); WHITE BLOOD COUNT 7.4 x10^3/uL (4.8-10.8)
[2018-05-06 18:56] LABS: CALCIUM 9.3 mg/dL (8.5-10.3); CREATININE 0.9 mg/dL (0.4-1.0)
== END 2018-05-06 08:49 | disposition home or self-care (01) ==
LOC: LAB.F 08:48
PROVIDERS: ATTEND Internal Medicine Cardiovascular Disease
DX: I10 Essential (primary) hypertension (principal); E78.5 Hyperlipidemia, unspecified
CPT/HCPCS: 36415; 80048; 85025

== ENCOUNTER 2018-05-27 10:59 | Emergency (ER) | payer MEDICARE, OTHER ==
[2018-05-27 11:42] VITALS: BP 131/41
--- NOTE | 2018-05-27 13:36 | ED Physician Documentation ---
PD HPI BACK PAIN - Stated complaint Stated Complaint: BACK PX - Chief complaint Chief Complaint: Back Pain - History obtained from History obtained from: Patient, Family - History of Present Illness Timing - onset: How many weeks ago (1) Timing - duration: Weeks (1) Timing - details: Gradual onset Pain level max: 8 Pain level now: 4 Location: Mid, Lower, Right, Left Quality: Pain, Spasm, Similar to prior episodes Associated symptoms: No: Fever, Weakness, Numbness, Incontinent of urine, Unable to urinate, Hematuria, Incontinent of stool Improves with: Rest Worsened by: Movement Similar symptoms before: Diagnosis (Compression fractures in her back) Recently seen: Clinic (Seen in clinic on Sunday for same, told to continue cannabis oil. States it is not helping) Review of Systems Ten Systems: 10 systems reviewed and negative Constitutional: denies: Fever, Chills Ears: denies: Ear pain Nose: denies: Rhinorrhea / runny nose, Congestion Throat: denies: Sore throat Cardiac: denies: Chest pain / pressure Respiratory: denies: Cough GI: denies: Abdominal Pain, Nausea, Vomiting, Diarrhea : denies: Dysuria, Frequency, Hesitancy Skin: denies: Rash Musculoskeletal: denies: Neck pain Neurologic: denies: Focal weakness, Numbness, Headache PD PAST MEDICAL HISTORY - Past Medical History Past Medical History: Yes Cardiovascular: Congestive heart failure, Hypertension, High cholesterol, Coronary artery disease, Atrial fibrillation, Other Respiratory: None Endocrine/Autoimmune: None GI: GERD : None HEENT: Macular degeneration, Chronic hearing loss Psych: None Musculoskeletal: None Derm: Eczema - Past Surgical History Past Surgical History: Yes General: Cholecystectomy, Colonoscopy, 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 Derm: Skin cancer surgery - Present Medications Home Medications: Ambulatory Orders Medication Instructions Recorded Confirmed Cholecalciferol (Vitamin D3) 2,000 unit PO DAILY 10/26/13 09/29/17 [Vitamin D] Esomeprazole Magnesium [Nexium] 40 mg PO DAILY 10/26/13 09/29/17 Lisinopril [Prinivil] 20 mg PO BID 10/26/13 09/29/17 Atorvastatin Calcium [Lipitor] 20 mg PO DAILY 01/03/16 09/29/17 Magnesium Oxide [Mag Ox] 400 mg PO DAILY #10 tablet 01/03/16 09/29/17 dilTIAZem HCl [Diltiazem 24Hr ER] 180 mg PO BID 01/03/16 09/29/17 Apixaban [Eliquis] 5 mg PO BID 08/05/16 09/29/17 Ciprofloxacin HCl 250 mg PO BID #6 tablet 09/29/17 Donepezil HCl 1 tab PO DAILY 09/29/17 09/29/17 Memantine HCl 1 tab PO Q6HR 09/29/17 09/29/17 Calcitonin,[place],Synthetic 11/03/17 [Calcitonin-Lampe] Calcium Carbonate [[id number]-[id number]-716] 500 mg PO 11/03/17 Clonidine HCl [Clonidine HCl ER] 0.1 mg PO 11/03/17 Iron,Carbonyl [Iron Chews] 11/03/17 Nitrofurantoin [Macrobid] 100 mg PO BID #13 capsule 11/04/17 Diclofenac Epolamine [Flector] 1 each TD Q12H PRN #10 adh..patch 05/27/18 oxyCODONE [Roxicodone] 2.5 - 5 mg PO Q6H PRN #10 tablet 05/27/18 - Allergies Allergies/Adverse Reactions: Allergies Allergy/AdvReac Type Severity Reaction Status Date / Time tramadol Allergy Severe Unknown Verified 05/27/18 11:43 codeine Allergy Itching Verified 05/27/18 11:43 - Social History Does the pt smoke?: No Smoking Status: Never smoker Does the pt drink ETOH?: Yes Does the pt have substance abuse?: No - Immunizations Immunizations are current?: Yes - POLST Patient has POLST: No PD ED PE NORMAL - Vitals Vital signs reviewed: Yes - General General: Alert and oriented X 3, No acute distress - HEENT HEENT: Moist mucous membranes - Neck Neck: Supple, no meningeal sign - Cardiac Cardiac: RRR, Strong equal pulses - Respiratory Respiratory: No respiratory distress, Clear bilaterally - Abdomen Abdomen: Soft, Non tender, Non distended - Back Back: No spinal TTP (No midline tenderness to palpation or percussion. No step- off or deformity. Otherwise normal exam) - Derm Derm: Warm and dry - Extremities Extremities: Other (Normal bilateral lower extremity patellar and ankle jerk reflexes. Normal great toe extension bilaterally. no saddle anesthesia) - Neuro Neuro: Alert and oriented X 3 Results - Vitals Vitals: Vital Signs - 24 hr 05/27/18 11:35 Temperature 36.5 C Heart Rate 72 Respiratory 18 Rate Blood Pressure 131/41 H O2 Saturation 95 Oxygen O2 Source [With Activity] Room air O2 Source Room air PD MEDICAL DECISION MAKING - ED course Complexity details: reviewed results, re-evaluated patient, considered differential (No cauda equina, no spinal epidural abscess, no fracture, no aortic dissection or evidence of aneursym rupture), d/w patient, d/w family ED course: Patient is an 87-year-old female with acute on chronic back pain. She feels much better after her Vicodin this morning. Will prescribe a small amount of oxycodone to see if she tolerates this better she does tend to have vomiting of the hydrocodone. She is also not using a walker at home, instead she is using counters and surfaces to help her walk. She is ambulating actually quite well with a walker in the emergency department and states that her back feels better. We will continue supportive care. We will not reimage at this point. Patient and family counseled regarding signs and symptoms for which I believe and urgent re-evaluation would be necessary. Patient with good understanding of and agreement to plan and is comfortable going home at this time This document was made in part using voice recognition software. While efforts are made to proofread this document, sound alike and grammatical errors may occur. Departure - Departure Disposition: 01 Home, Self Care Clinical Impression: Back pain Qualifiers: Back pain location: low back pain Chronicity: acute Back pain laterality: left Sciatica presence: without sciatica Qualified Code(s): M54.5 - Low back pain Condition: Good Instructions: ED Neck Back Pain General Follow-Up: Edward Davenport MD [Primary Care Provider] - Prescriptions: Diclofenac Epolamine [Flector] 1 each TD Q12H PRN #10 adh..patch PRN Reason: back pain oxyCODONE [Roxicodone] 2.5 - 5 mg PO Q6H PRN #10 tablet PRN Reason: back pain Comments: Return if you worsen. You need to use a walker at all times when you are at home. Follow-up with your doctor for further care. Do not drink alcohol or drive while on narcotic pain medicine. Note that many narcotic pain relievers also contain tylenol/acetaminophen. Please ensure that your total dose of acetaminophen from all sources does not exceed 3 grams (3000mg) per day. You may constipated on this medication, take a stool softener such as "Colace" twice a day while you are on it. Also recommend a acxi-lbl-pniagva laxative such as senna or MiraLAX any day that you do not have a bowel movement. If you received narcotic pain medication in the emergency department, do not drive or operate machinery for the next 24 hours. Discharge Date/Time: 05/27/18 14:03
== END 2018-05-27 14:03 | disposition home or self-care (01) ==
LOC: ED 10:59
DX: M54.5 Low back pain (principal); G89.29 Other chronic pain; M47.9 Spondylosis, unspecified; M51.34 Other intervertebral disc degeneration, thoracic region; M48.54XA Collapsed vertebra, not elsewhere classified, thoracic region, initial encounter for fracture; I11.0 Hypertensive heart disease with heart failure; I50.9 Heart failure, unspecified; E78.00 Pure hypercholesterolemia, unspecified; I25.10 Atherosclerotic heart disease of native coronary artery without angina pectoris; I48.91 Unspecified atrial fibrillation; Z79.01 Long term (current) use of anticoagulants
CPT/HCPCS: 72072; 99283

== ENCOUNTER 2018-05-27 14:24 | Outpatient (CLI) | payer MEDICARE, OTHER ==
--- NOTE | 2018-05-27 15:44 | XRAY Report ---
Reason: BACK PAIN,THORACIC REGION Procedure Date: 05/27/2018 Accession Number: [id number] / [id number] Procedure: XR - Thoracic Spine 3 View CPT Code: FULL RESULT: EXAM: THORACIC SPINE RADIOGRAPHY EXAM DATE: 05/27/2018 02:44 PM. CLINICAL HISTORY: BACK Pain, thoracic REGION. COMPARISON: CHEST 2 VIEW PA/LAT 10/04/2016 8:04 PM. TECHNIQUE: 2 views. FINDINGS: Bones appear qualitatively osteopenic. Alignment: Incompletely imaged is a stable-appearing S-shaped thoracolumbar scoliosis. Bones: There is interval subtle approximately 25% loss of height of T9. Approximately 50% of loss of height of the T12 vertebral body appears similar to 10/04/2016. There are multilevel degenerative changes without significant osteophytosis. Approximate 75% loss of height is seen in an upper vertebral body, also stable compared to 2016. Disks: There is mild multilevel loss of disk space height Soft Tissues: Normal. The visualized lungs and cardiomediastinal silhouette are normal. IMPRESSION: Interval development of age-indeterminate loss of height of the T9 vertebral body, approximately 25%. Kyphosis and S-shaped scoliosis with multiple chronic wedge deformities. RADIA The above findings of possible culprit compression fracture at T9 were discussed with Margartia Crum by Dr. Jamal Russ at 15:42 hrs on 05/27/18.
== END 2018-05-27 14:25 | disposition home or self-care (01) ==
LOC: DI 14:24
PROVIDERS: ATTEND Physician Assistant Medical
DX: M47.9 Spondylosis, unspecified (principal); M51.34 Other intervertebral disc degeneration, thoracic region; M48.54XA Collapsed vertebra, not elsewhere classified, thoracic region, initial encounter for fracture
CPT/HCPCS: 72072

== ENCOUNTER 2018-06-03 08:27 | Emergency (ER) | payer MEDICARE, OTHER ==
[2018-06-03] MEDS ORDERED: ONDANSETRON 4 MG/2 ML VIAL IVP STA ×2 (08:31→11:18)
[2018-06-03] MEDS ORDERED: SODIUM CHLORIDE 0.9% 1,000 ML IV ONE (08:44)
[2018-06-03 08:48] LABS: BASOPHILS # (AUTO) 0.1 10^3/uL (0.0-0.1); BASOPHILS % (AUTO) 0.8 %; EOSINOPHILS % (AUTO) 0.3 %; HGB - HEMOGLOBIN 12.2 g/dL (12.0-16.0); LYMPHOCYTES % (AUTO) 6.1 %; MEAN CORPUSCULAR HEMOGLOBIN 30.8 pg (27.0-31.0); MEAN CORPUSCULAR HGB CONC 34.3 g/dL (32.0-36.0); MEAN CORPUSCULAR VOLUME 89.9 fL (81.0-99.0); MEAN PLATELET VOLUME 7.2 fL (7.9-10.8); MONOCYTES # (AUTO) 1.2 10^3/uL (0.0-1.0); MONOCYTES % (AUTO) 7.2 %; NEUTROPHILS # (AUTO) 14.5 10^3/uL (1.5-6.6); NEUTROPHILS % (AUTO) 85.6 %; PLT - PLATELET COUNT 383 10^3/uL (130-450); RED BLOOD COUNT 3.97 10^6/uL (4.20-5.40); RED CELL DISTRIBUTION WIDTH 12.4 % (12.0-15.0); WHITE BLOOD COUNT 16.9 x10^3/uL (4.8-10.8)
[2018-06-03] MEDS ORDERED: IOVERSOL 320 100 ML VIAL IVP ONE ×2 (08:53→11:43)
[2018-06-03 08:58] LABS: ALBUMIN 3.6 g/dL (3.2-5.5); CALCIUM 9.2 mg/dL (8.5-10.3); CREATININE 0.8 mg/dL (0.4-1.0); TOTAL PROTEIN 7.1 g/dL (6.7-8.2)
--- NOTE | 2018-06-03 09:00 | ED Physician Documentation ---
History of Present Illness - Stated complaint Stated Complaint: N/V - Chief complaint Chief Complaint: Back Pain - Additonal information Additional information: 87-year-old female presents the emergency department with increasing epigastric pain which is associated with nausea and radiates into her back. Today the patient the pain became much more pronounced with significant nausea and vomiting. Symptoms are described as severe. No specific triggering factors. No relieving factors. No other associated symptoms. The patient denies blood in the vomit. No other associated symptoms. Review of Systems Constitutional: reports: Chills, Fatigue. denies: Fever Eyes: denies: Loss of vision Ears: denies: Ear pain Nose: denies: Congestion Throat: denies: Sore throat Cardiac: denies: Chest pain / pressure Respiratory: denies: Dyspnea GI: reports: Abdominal Pain, Nausea, Vomiting : reports: Dysuria Skin: denies: Rash Musculoskeletal: reports: Back pain Neurologic: reports: Generalized weakness Psychiatric: denies: Hallucinations PD PAST MEDICAL HISTORY - Past Medical History Cardiovascular: Congestive heart failure, Hypertension, High cholesterol, Coronary artery disease, Atrial fibrillation, Other Respiratory: None Endocrine/Autoimmune: None GI: GERD : None HEENT: Macular degeneration, Chronic hearing loss Psych: None Musculoskeletal: None Derm: Eczema - Past Surgical History Past Surgical History: Yes General: Cholecystectomy, Colonoscopy, 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 Derm: Skin cancer surgery - Present Medications Home Medications: Ambulatory Orders Medication Instructions Recorded Confirmed Cholecalciferol (Vitamin D3) 2,000 unit PO DAILY 10/26/13 09/29/17 [Vitamin D] Lisinopril [Prinivil] 20 mg PO BID 10/26/13 09/29/17 Atorvastatin Calcium [Lipitor] 20 mg PO DAILY 01/03/16 09/29/17 Magnesium Oxide [Mag Ox] 400 mg PO DAILY #10 tablet 01/03/16 09/29/17 dilTIAZem HCl [Diltiazem 24Hr ER] 180 mg PO BID 01/03/16 09/29/17 Apixaban [Eliquis] 5 mg PO BID 08/05/16 09/29/17 Donepezil HCl 1 tab PO DAILY 09/29/17 09/29/17 Memantine HCl 1 tab PO Q6HR 09/29/17 09/29/17 Calcitonin,[place],Synthetic 11/03/17 [Calcitonin-[place]] Calcium Carbonate [Qoym-[id number]-508] 500 mg PO 11/03/17 Iron,Carbonyl [Iron Chews] 11/03/17 Omeprazole 40 mg PO 06/03/18 hydrALAZINE [Apresoline] 50 mg PO 06/03/18 - Allergies Allergies/Adverse Reactions: Allergies Allergy/AdvReac Type Severity Reaction Status Date / Time tramadol Allergy Severe Unknown Verified 06/03/18 08:37 codeine Allergy Itching Verified 06/03/18 08:37 - Social History Does the pt smoke?: No Smoking Status: Never smoker Does the pt drink ETOH?: Yes Does the pt have substance abuse?: No - Immunizations Immunizations are current?: Yes - POLST Patient has POLST: No PD ED PE NORMAL - General General: Alert and oriented X 3 - HEENT HEENT: Atraumatic, PERRL, EOMI, Ears normal - Cardiac Cardiac: RRR, Strong equal pulses - Respiratory Respiratory: No respiratory distress, Clear bilaterally - Abdomen Abdomen: Soft, Non distended. No: Non tender (The patient has tenderness to palpation of the epigastrium, no rebound or peritoneal signs) - Derm Derm: Normal color - Extremities Extremities: No deformity - Neuro Neuro: Alert and oriented X 3, Normal speech - Psych Psych: Normal mood PD ED PE EXPANDED - General General: In Pain, In distress Results - Vitals Vitals: Vital Signs - 24 hr 06/03/18 06/03/18 06/03/18 08:28 08:48 09:57 Temperature 36.6 C Heart Rate 79 Respiratory 20 14 Rate Blood Pressure 143/45 H 169/51 H O2 Saturation 88 L 93 96 06/03/18 06/03/18 12:02 12:23 Temperature Heart Rate 68 68 Respiratory 18 18 Rate Blood Pressure 134/48 H 149/48 H O2 Saturation 98 98 Oxygen O2 Source [] Room air O2 Source Nasal cannula - EKG (time done) 08:46 Rate: Rate (enter#) Rhythm: NSR Intervals: Normal WI QRS: Normal Ischemia: Non specific changes - Labs Labs: Laboratory Tests 06/03/18 06/03/18 06/03/18 08:35 08:35 08:35 WBC 16.9 H RBC 3.97 L Hgb 12.2 Hct 35.7 L MCV 89.9 MCH 30.8 MCHC 34.3 RDW 12.4 Plt Count 383 MPV 7.2 L Neut # (Auto) 14.5 H Lymph # (Auto) 1.0 L [place] # (Auto) 1.2 H Eos # (Auto) 0.0 Baso # (Auto) 0.1 Absolute Nucleated RBC 0.00 Nucleated RBC % 0.0 Sodium 131 L Potassium 3.9 Chloride 90 L Carbon Dioxide 28 Anion Gap 13.0 BUN 15 Creatinine 0.8 Estimated GFR (MDRD) 68 L Glucose 98 Calcium 9.2 Total Bilirubin 1.0 AST 20 ALT 30 Alkaline Phosphatase 157 H Troponin I < 0.04 Total Protein 7.1 Albumin 3.6 Globulin 3.5 Albumin/Globulin Ratio 1.0 Lipase 24 Urine Color Urine Clarity Urine pH Ur Specific [place] Urine Protein Urine Glucose (UA) Urine Ketones Urine Occult Blood Urine Nitrite Urine Bilirubin Urine Urobilinogen Ur Leukocyte Esterase Urine RBC Urine WBC Ur Squamous Epith Cells Urine Bacteria Urine Casts Ur Microscopic Review Urine Culture Comments 06/03/18 11:12 WBC RBC Hgb Hct MCV MCH MCHC RDW Plt Count MPV Neut # (Auto) Lymph # (Auto) [place] # (Auto) Eos # (Auto) Baso # (Auto) Absolute Nucleated RBC Nucleated RBC % Sodium Potassium Chloride Carbon Dioxide Anion Gap BUN Creatinine Estimated GFR (MDRD) Glucose Calcium Total Bilirubin AST ALT Alkaline Phosphatase Troponin I Total Protein Albumin Globulin Albumin/Globulin Ratio Lipase Urine Color YELLOW Urine Clarity CLOUDY Urine pH 5.5 Ur Specific [place] 1.020 Urine Protein TRACE Urine Glucose (UA) NEGATIVE Urine Ketones 40 H Urine Occult Blood TRACE-INTA Urine Nitrite NEGATIVE Urine Bilirubin NEGATIVE Urine Urobilinogen 0.2 (NORMAL) Ur Leukocyte Esterase TRACE H Urine RBC 0-5 Urine WBC >25 H Ur Squamous Epith Cells MANY Squamous H Urine Bacteria Moderate H Urine Casts 0-2 WBC Casts Ur Microscopic Review INDICATED Urine Culture Comments NOT INDICATED - Rads (name of study) CT abd/pelvis Radiology: Final report received, See rad report (IMPRESSION: Marked dilation of the biliary ductal system intrahepatically and extrahepatically with suspicion of obstructive choledocholithiasis at ) PD MEDICAL DECISION MAKING - ED course ED course: The patient's findings show evidence of a gallstone causing choledocholithiasis. The patient will require further workup and evaluation by GI. I discussed the case with the poultry field service technician at [facility] and she agrees with the plan for transfer. The case was discussed with the hospitalist Dr. Elizondo who accepts the patient for transfer. The findings and plan were discussed with the patient and family who understand and agree to the plan. Departure - Departure Disposition: 02 Transfer Acute Care Hosp Clinical Impression: Choledocholithiasis with obstruction Qualifiers: Cholecystitis presence: without cholecystitis Qualified Code(s): K80.51 - Calculus of bile duct without cholangitis or cholecystitis with obstruction Condition: Fair
[2018-06-03] MEDS ORDERED: fentaNYL 100 MCG/2 ML VIAL IVP STA (11:18)
--- NOTE | 2018-06-03 11:20 | CT Report ---
Reason: Nausea and vomiting, abdominal distention Procedure Date: 06/03/2018 Accession Number: [id number] / [id number] Procedure: CT - Abdomen/Pelvis W/ CPT Code: FULL RESULT: EXAM: CT ABDOMEN AND PELVIS EXAM DATE: 06/03/2018 10:22 AM. CLINICAL HISTORY: Nausea and vomiting, abdominal distention. COMPARISONS: Abdomen/pelvis w/ 11/03/2017 10:29 PM. TECHNIQUE: Routine helical CT imaging was performed through the abdomen and pelvis. IV contrast: Isovue 320 90 mL. Enteric contrast: No. Reconstructions: Coronal and sagittal. In accordance with CT protocol optimization, one or more of the following dose reduction techniques were utilized for this exam: automated exposure control, adjustment of mA and/or KV based on patient size, or use of iterative reconstructive technique. FINDINGS: Lung Bases: Mild posterior dependent changes. Partial visualization of cardiomegaly and coronary calcifications. Liver: Normal. No masses. Gallbladder/Bile Ducts: Status post cholecystectomy with a greater than expected marked intrahepatic and extrahepatic biliary ductal dilation with the distal CBD measuring up to 1.9 cm. In the region of the small bowel at the expected location of the sphincter of Oddi is a 6 mm calcific density. While this is not definitely demonstrated to communicate with the duct, findings are suspicious for a distal CBD obstruction by choledocholithiasis at the level of the sphincter. Spleen: Normal. Pancreas: Partially atrophic. Adrenal Glands: Normal. Kidneys: Normal. No masses or hydronephrosis. Peritoneal Cavity/Bowel: Diverticulosis without diverticulitis. No free fluid, free air or adenopathy. No masses or acute inflammatory process. The appendix is not definitely visualized and there is a mild amount of haziness in the pericecal region suggestive of low-level inflammation. Pelvic Organs: Normal. The bladder and visualized pelvic organs are within normal limits. Vasculature: Severe atherosclerotic disease without antonio aneurysm formation. Bones: No significant abnormality. Other: None. IMPRESSION: Marked dilation of the biliary ductal system intrahepatically and extrahepatically with suspicion of obstructive choledocholithiasis at the level of the sphincter. Low-level inflammatory changes in the cecal region without visualization of the appendix. RADIA CRITICAL RESULT: The findings were discussed with Dr. Rooney on 06/03/2018 at 11:20 AM.
[2018-06-03 11:23] LABS: BILIRUBIN,URINE NEGATIVE (NEGATIVE); GLUCOSE, URINE (UA) NEGATIVE (NEGATIVE); KETONES,URINE (UA) 40 mg/dL (NEGATIVE); LEUKOCYTE ESTERASE, URINE TRACE (NEGATIVE); NITRITE,URINE NEGATIVE (NEGATIVE); OCCULT BLOOD,URINE TRACE-INTA (NEGATIVE); PH,URINE 5.5 PH (5.0-7.5); PROTEIN,URINE TRACE mg/dL (NEGATIVE); UROBILINOGEN,URINE 0.2 (NORMAL) E.U./dL (NORMAL)
[2018-06-03 11:24] LABS: CLARITY,URINE CLOUDY (CLEAR)
--- NOTE | 2018-06-03 11:27 | XRAY Report ---
Reason: cp Procedure Date: 06/03/2018 Accession Number: [id number] / [id number] Procedure: XR - Chest 2 View X-Ray CPT Code: 02985 FULL RESULT: EXAM: CHEST RADIOGRAPHY EXAM DATE: 06/03/2018 10:45 AM. CLINICAL HISTORY: Chest pain. COMPARISON: THORACIC SPINE 3 VIEW 05/27/2018 2:29 PM CHEST 2 VIEW PA/LAT 10/04/2016 8:04 PM. TECHNIQUE: 2 views. FINDINGS: Lungs/Pleura: No focal opacities evident. No pleural effusion. No pneumothorax. High normal lung volumes, barrel chested configuration with flattened diaphragms. Mediastinum: Heart and mediastinal contours are stable with apparent increase in cardiomegaly likely due to technique and stable aortic arch calcification. Other: Similar scoliosis with stable vertebral plana in the midthoracic spine and unchanged approximately 25% loss of vertebral body height at likely T10. IMPRESSION: Suspect obstructive lung disease. No acute pulmonary consolidation. RADIA
[2018-06-03 11:33] LABS: BACTERIA,URINE Moderate /HPF (None Seen); CASTS, URINE 0-2 WBC Casts /LPF; RBC,URINE 0-5 /HPF (0-5); SQUAMOUS EPITHELIAL CELL,UR MANY Squamous (<= Few)
[2018-06-03] MEDS ORDERED: PIPERACILLIN/TAZOBACTAM 4.5 GM in SODIUM CHLORIDE 0.9% MINIBAG 100 ML IV STA (12:02)
[2018-06-03 12:25] VITALS: BP 149/48
== END 2018-06-03 15:09 | disposition short-term general hospital (02) ==
LOC: EDUNIT# → ED 08:27
DX: K80.51 Calculus of bile duct without cholangitis or cholecystitis with obstruction (principal); I11.0 Hypertensive heart disease with heart failure; I50.9 Heart failure, unspecified; E78.00 Pure hypercholesterolemia, unspecified; I25.10 Atherosclerotic heart disease of native coronary artery without angina pectoris
CPT/HCPCS: 36415; 71046; 74177; 80053; 81001; 83690; 84484; 85025; 93005; 96365; 96375; 99284; 99285; Q9967; 81003; 87086

== ENCOUNTER 2018-07-04 19:43 | Outpatient (CLI) | payer MEDICARE, OTHER | END 2018-07-04 19:44 | disposition short-term general hospital (02) | LOC: EMS 19:43 | PROVIDERS: ATTEND Surgery | DX: R41.82 Altered mental status, unspecified (principal) | CPT/HCPCS: A0425; A0429 ==

== ENCOUNTER 2018-08-08 10:37 | Outpatient (CLI) | payer MEDICARE, OTHER | END 2018-08-08 10:38 | disposition critical access hospital (66) | LOC: EMS 10:37 | PROVIDERS: ATTEND Surgery | DX: R53.1 Weakness (principal) | CPT/HCPCS: A0425; A0427 ==

== ENCOUNTER 2018-08-08 11:10 | Observation (INO) | payer MEDICARE, OTHER ==
--- NOTE | 2018-08-08 12:37 | XRAY Report ---
Reason: hypoxia Procedure Date: 08/08/2018 Accession Number: [id number] / [id number] Procedure: XR - Chest 1 View X-Ray CPT Code: 34716 FULL RESULT: EXAM: CHEST RADIOGRAPHY EXAM DATE: 08/08/2018 12:25 PM. CLINICAL HISTORY: Hypoxia. Right lung base rhonchi. COMPARISON: CHEST 2 VIEW 06/03/2018 10:38 AM. TECHNIQUE: 1 view. FINDINGS: Lungs/Pleura: New small left pleural effusion. Bibasilar atelectasis. Mediastinum: Within exam limitations, the cardiomediastinal contour is normal. Other: Bones appear osteopenic. Convex right lower thoracic scoliosis. Generalized thoracic kyphosis. Multiple lower thoracic compression deformities appearing similar to prior chest x-ray. IMPRESSION: 1. Small left pleural effusion. 2. Mild bibasilar atelectasis. RADIA
[2018-08-08] MEDS ORDERED: SODIUM CHLORIDE 0.9% 500 ML IV ONE (13:25)
[2018-08-08] MEDS ORDERED: SODIUM CHLORIDE 0.9% 1,000 ML IV ONE (13:25)
--- NOTE | 2018-08-08 13:56 | ED Physician Documentation ---
History of Present Illness - Stated complaint Stated Complaint: WEAKNESS - Chief complaint Chief Complaint: Resp - History obtained from History obtained from: Patient, Family - History of Present Illness Timing: Chronic Pain level max: 5 Pain level now: 4 - Additonal information Additional information: 87-year-old female presents to the emergency department after being discharged from [facility] rehab for generalized weakness and failure to thrive. Family has taken her home. They state she is refusing to eat or drink. She was visited by the hospice intake nurse today who sent her here for evaluation. They state that they have discussed feeding tubes in the past, but she has refused this so far. She sees Dr. Appiah for gastroenterology at [facility] in [place]. Her [place] care provider [place]. Family is concerned about her weakness. She does not want to go back to rehab. Review of Systems Constitutional: denies: Fever, Chills Skin: denies: Rash Musculoskeletal: reports: Back pain (fractures in the back). denies: Neck pain Neurologic: denies: Headache PD PAST MEDICAL HISTORY - Past Medical History Cardiovascular: Congestive heart failure, Hypertension, High cholesterol, Coronary artery disease, Atrial fibrillation, Other Respiratory: None Endocrine/Autoimmune: None GI: GERD : None HEENT: Macular degeneration, Chronic hearing loss Psych: None Musculoskeletal: None Derm: Eczema - Past Surgical History Past Surgical History: Yes General: Cholecystectomy, Colonoscopy, EGD /DEMONSTRATOR ELECTRIC GAS APPLIANCES: section Derm: Skin cancer surgery - Present Medications Home Medications: Ambulatory Orders Medication Instructions Recorded Confirmed Cholecalciferol (Vitamin D3) 2,000 unit PO DAILY 10/26/13 08/08/18 [Vitamin D] Lisinopril [Prinivil] 20 mg PO BID 10/26/13 08/08/18 Magnesium Oxide [Mag Ox] 400 mg PO DAILY #10 tablet 01/03/16 08/08/18 Apixaban [Eliquis] 5 mg PO BID 08/05/16 08/08/18 Donepezil HCl 10 mg PO QPM 09/29/17 08/08/18 Calcitonin,[place],Synthetic 1 spray DAILY 11/03/17 08/08/18 [Calcitonin-[place]] Calcium Carbonate [[id number]] 500 mg PO DAILY 11/03/17 08/08/18 Diltiazem HCl [Diltiazem 24Hr ER] 180 mg PO DAILY 08/08/18 08/08/18 Esomeprazole Magnesium 40 mg PO QDAC 08/08/18 08/08/18 Ferrous Sulfate [Slow Fe] 142 mg PO DAILY 08/08/18 08/08/18 Hydralazine HCl 50 mg PO TID 08/08/18 08/08/18 Lidocaine Patch 5% [Lidoderm Patch] 1 patch TOP DAILY 08/08/18 08/08/18 Memantine HCl 10 mg PO BID 08/08/18 08/08/18 Ondansetron Odt [Zofran Odt] 4 mg TL Q4H 08/08/18 08/08/18 oxyCODONE [Roxicodone] 2.5 - 5 mg PO Q6H PRN 08/08/18 08/08/18 - Allergies Allergies/Adverse Reactions: Allergies Allergy/AdvReac Type Severity Reaction Status Date / Time tramadol Allergy Severe Unknown Verified 08/08/18 11:24 codeine Allergy Itching Verified 08/08/18 11:24 - Social History Does the pt smoke?: No Smoking Status: Never smoker Does the pt drink ETOH?: Yes Does the pt have substance abuse?: No - Immunizations Immunizations are current?: Yes - POLST Patient has POLST: No PD ED PE NORMAL - Vitals Vital signs reviewed: Yes - General General: Alert and oriented X 3, Other (thin, frail) - HEENT HEENT: Atraumatic, PERRL, Ears normal, Moist mucous membranes - Neck Neck: Supple, no meningeal sign, No bony TTP - Cardiac Cardiac: RRR - Respiratory Respiratory: No respiratory distress, Other (rhonchi B) - Abdomen Abdomen: Soft, Non tender, Non distended - Back Back: Other (mild diffuse TTP) - Derm Derm: Warm and dry - Extremities Extremities: No edema - Neuro Neuro: Alert and oriented X 3 Results - Vitals Vitals: Vital Signs - 24 hr 08/08/18 08/08/18 08/08/18 11:16 11:30 12:00 Temperature 36.7 C Heart Rate 87 84 85 Respiratory 19 18 16 Rate Blood Pressure 126/45 L 119/43 L 103/76 O2 Saturation 88 L 97 96 08/08/18 13:00 Temperature Heart Rate 89 Respiratory 16 Rate Blood Pressure 106/45 L O2 Saturation 97 Oxygen O2 Source [With Activity] Room air O2 Source Nasal cannula Oxygen Flow Rate 2 - Labs Labs: Laboratory Tests 08/08/18 08/08/18 08/08/18 14:14 14:14 14:37 WBC 41.1 H* RBC 3.75 L Hgb 11.3 L Hct 33.6 L MCV 89.5 MCH 30.2 MCHC 33.8 RDW 15.3 H Plt Count 407 MPV 7.7 L Neut # (Auto) 37.4 H Lymph # (Auto) 1.5 Ector # (Auto) 1.5 H Eos # (Auto) 0.4 Baso # (Auto) 0.2 H Absolute Nucleated RBC 0.02 Nucleated RBC % 0.0 Manual Slide Review Indicated RBC Morph Micro Appear 1+ ACANTHOCYTES Sodium 134 L Potassium 2.4 L* Chloride 99 L Carbon Dioxide 25 Anion Gap 10.0 BUN 21 H Creatinine 1.0 Estimated GFR (MDRD) 52 L Glucose 125 H Calcium 7.7 L Total Bilirubin 0.9 AST 13 ALT 15 Alkaline Phosphatase 101 Total Protein 4.1 L Albumin 1.8 L Globulin 2.3 Albumin/Globulin Ratio 0.8 L Lipase 23 Urine Color DARK YELLOW Urine Clarity CLEAR Urine pH 5.5 Ur Specific [place] 1.025 Urine Protein NEGATIVE Urine Glucose (UA) NEGATIVE Urine Ketones 15 H Urine Occult Blood NEGATIVE Urine Nitrite NEGATIVE Urine Bilirubin NEGATIVE Urine Urobilinogen 0.2 (NORMAL) Ur Leukocyte Esterase NEGATIVE Ur Microscopic Review NOT INDICATED Urine Culture Comments NOT INDICATED - Rads (name of study) cxr Radiology: Prelim report reviewed, EMP read contemporaneously PD MEDICAL DECISION MAKING - ED course Complexity details: reviewed results, re-evaluated patient, considered differential, d/w patient, d/w family, d/w internal consultant ED course: 87-year-old female presents to the emergency department with what appears to be failure to thrive, possibly secondary to leukemia with her white blood cell count of nearly 42. I discussed at length with the patient and family, they do not want bone marrow biopsies or to consider chemotherapy. They want her to be made comfortable. We will admit her to the hospital for IV fluids, electrolyte correction and consideration of hospice/palliative care. She was supposed to have a hospice intake today with [facility] [place], but was too sick. Discussed the case with the hospitalist, who accepts Departure - Departure Disposition: ED Place in Observation Clinical Impression: Hypokalemia, Failure to thrive in adult, Hypoxia, Pleural effusion Leukocytosis Qualifiers: Leukocytosis type: unspecified Qualified Code(s): D72.829 - Elevated white blood cell count, unspecified Condition: Stable Discharge Date/Time: 08/08/18 15:48
[2018-08-08 14:24] LABS: BASOPHILS # (AUTO) 0.2 10^3/uL (0.0-0.1); BASOPHILS % (AUTO) 0.4 %; EOSINOPHILS # (AUTO) 0.4 10^3/uL (0.0-0.7); EOSINOPHILS % (AUTO) 1.1 %; HGB - HEMOGLOBIN 11.3 g/dL (12.0-16.0); LYMPHOCYTES # (AUTO) 1.5 10^3/uL (1.5-3.5); LYMPHOCYTES % (AUTO) 3.8 %; MEAN CORPUSCULAR HEMOGLOBIN 30.2 pg (27.0-31.0); MEAN CORPUSCULAR HGB CONC 33.8 g/dL (32.0-36.0); MEAN CORPUSCULAR VOLUME 89.5 fL (81.0-99.0); MEAN PLATELET VOLUME 7.7 fL (7.9-10.8); MONOCYTES # (AUTO) 1.5 10^3/uL (0.0-1.0); MONOCYTES % (AUTO) 3.7 %; NEUTROPHILS # (AUTO) 37.4 10^3/uL (1.5-6.6); PLT - PLATELET COUNT 407 10^3/uL (130-450); RED BLOOD COUNT 3.75 10^6/uL (4.20-5.40); RED CELL DISTRIBUTION WIDTH 15.3 % (12.0-15.0)
[2018-08-08 14:27] LABS: WHITE BLOOD COUNT 41.1 x10^3/uL (4.8-10.8)
[2018-08-08 14:33] LABS: ALBUMIN 1.8 g/dL (3.2-5.5); ALBUMIN/GLOBULIN RATIO 0.8 (1.0-2.2); BILIRUBIN,TOTAL 0.9 mg/dL (0.2-1.0); CALCIUM 7.7 mg/dL (8.5-10.3); TOTAL PROTEIN 4.1 g/dL (6.7-8.2)
[2018-08-08 15:00] LABS: GLUCOSE, URINE (UA) NEGATIVE (NEGATIVE); KETONES,URINE (UA) 15 mg/dL (NEGATIVE); LEUKOCYTE ESTERASE, URINE NEGATIVE (NEGATIVE); NITRITE,URINE NEGATIVE (NEGATIVE); OCCULT BLOOD,URINE NEGATIVE (NEGATIVE); PH,URINE 5.5 PH (5.0-7.5); PROTEIN,URINE NEGATIVE (NEGATIVE); UROBILINOGEN,URINE 0.2 (NORMAL) E.U./dL (NORMAL)
[2018-08-08 15:04] LABS: BILIRUBIN,URINE NEGATIVE (NEGATIVE); CLARITY,URINE CLEAR (CLEAR); ICTOTEST,URINE NEGATIVE
[2018-08-08] MEDS ORDERED: SODIUM CHLORIDE FLUSH 0.9% 10 ML SYRINGE IVP PRN (15:07)
[2018-08-08] MEDS: SODIUM CHLORIDE FLUSH 0.9% 10 ML SYRINGE IVP SCH (17:59)
[2018-08-08] MEDS: SODIUM CHLORIDE 0.9% 1,000 ML IV SCH (17:59)
--- NOTE | 2018-08-08 18:30 | HISTORY & PHYSICAL EXAMINATION ---
Chief Complaint - Chief Complaint Chief Complaint: dehydration and weakness History of Present Illness - Admitted From Admitted From:: Home - History Obtained From Records Reviewed: [facility] History obtained from: Patient, Ravinder, and son Exam Limitations: None - History of Present Illness HPI Comment/Other: Delia Looney (Dolly) is an 87 year old female with a past medical history significant for CAD, CHF, atrial fibrillation on eliquis, HTN, vertebral fractures T6, L1 and dementia. She presents to the ER today for dehydration and weakness. She was hospitalized at [facility] in early July for increased weakness, anorexia with unrelieved nausea and general failutre to thrive at home. She had persistent leukocytosis and underwent an EUS where a nodule was discovered. Patient sees Dr. 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 She was discharged to [facility] and discharged home on 08/03/2018. A hospice communications coordinator evaluated Ruth today and advised her to seek evaluation in the ER. Her and son say that Ruth has not had much of an appetite since May, and they are not sure why. She has had bouts of diarrhea, most recently she has been having diarrhea every 6-7 hours, per . Patient has had about a #20lb weight loss in the last couple of months. In the ER, she was found to have an elevated white blood cell count and hypokalemia. She was given 500 cc normal saline bolus. In evaluation of the patient, her and son are at the bedside. She is laying comfortable in the bed and requesting some hot tea. The family's goal of hospitalization is to maintain comfort, while stabilizing her. She lives at home with her . Her son lives roughly 30 minutes nearby. At home, she walks with assistance by holding onto people. She is resistant to using a walker. Her reports that she has advanced osteoporsis with previous compression fractures and takes oxycodone periodically at home for the pain. Patient and her family wishes for her to be a DNR. History - Past Medical History Cardiovascular: reports: Congestive heart failure, High cholesterol, Peripheral Vascular Disease, Atrial fibrillation, Other Respiratory: reports: None Neuro: reports: Dementia Endocrine/Autoimmune: reports: None GI: reports: GERD : reports: Incontinence, Other HEENT: reports: Macular degeneration, Chronic hearing loss Psych: reports: None Musculoskeletal: reports: Osteoporosis, Chronic back pain Derm: reports: Eczema MRSA Hx?: No Other Past Medical History: Frequent UTI - Past Surgical History General: reports: Cholecystectomy, Colonoscopy, EGD /DIRECTOR CLINICAL APPLICATIONS: reports: section Derm: reports: Skin cancer surgery - Family & Social History Living arrangement: At home Living Situation: With spouse/s.o. - Substance History Use: Uses substance without health or social issues: NONE - POLST Patient has POLST: No Meds/Allgy - Home Medications Home Medications: Ambulatory Orders Medication Instructions Recorded Confirmed Cholecalciferol (Vitamin D3) 2,000 unit PO DAILY 10/26/13 08/08/18 [Vitamin D] Lisinopril [Prinivil] 20 mg PO BID 10/26/13 08/08/18 Magnesium Oxide [Mag Ox] 400 mg PO DAILY #10 tablet 01/03/16 08/08/18 Apixaban [Eliquis] 5 mg PO BID 08/05/16 08/08/18 Donepezil HCl 10 mg PO QPM 09/29/17 08/08/18 Calcitonin,[place],Synthetic 1 spray DAILY 11/03/17 08/08/18 [Calcitonin-[place]] Calcium Carbonate [[id number]] 500 mg PO DAILY 11/03/17 08/08/18 Diltiazem HCl [Diltiazem 24Hr ER] 180 mg PO DAILY 08/08/18 08/08/18 Esomeprazole Magnesium 40 mg PO QDAC 08/08/18 08/08/18 Ferrous Sulfate [Slow Fe] 142 mg PO DAILY 08/08/18 08/08/18 Hydralazine HCl 50 mg PO TID 08/08/18 08/08/18 Lidocaine Patch 5% [Lidoderm Patch] 1 patch TOP DAILY 08/08/18 08/08/18 Memantine HCl 10 mg PO BID 08/08/18 08/08/18 Ondansetron Odt [Zofran Odt] 4 mg TL Q4H 08/08/18 08/08/18 oxyCODONE [Roxicodone] 2.5 - 5 mg PO Q6H PRN 08/08/18 08/08/18 - Allergies Allergies/Adverse Reactions: Allergies Allergy/AdvReac Type Severity Reaction Status Date / Time tramadol Allergy Severe Unknown Verified 08/08/18 11:24 codeine Allergy Itching Verified 08/08/18 11:24 Review of Systems - Constitutional Constitutional: reports: Weakness, Poor appetite, Weight loss. denies: Fever, Chills - Eyes Eyes: reports: Vision loss - Ears, Nose & Throat Ears, Nose & Throat: reports: Hearing loss, Dentures - Cardiovascular Cariovascular: reports: Irregular heart rate. denies: Chest pain - Respiratory Respiratory: denies: Cough - Gastrointestinal Gastrointestinal: reports: Diarrhea, Nausea. denies: Abdominal pain - Genitourinary Genitourinary: denies: Dysuria, Frequency - Musculoskeletal Musculoskeletal: reports: Back pain - Neurological Neurological: reports: General weakness, Memory problems, Abnormal gait - Psychiatric Psychiatric: denies: Depression - All Other Systems All Other Systems: reports: Reviewed and negative Prior Level of Functionality: Patient lives at home and requires assistance from her to ambulate. Exam - Vital Signs Reviewed Vital Signs: Yes Vital Signs: Vital Signs x48h Temp Pulse Pulse Resp BP BP Pulse Ox 08/08/18 17:00 88 100 08/08/18 16:00 36.6 C 99 16 126/44 L 93 08/08/18 15:17 91 18 112/53 L 100 08/08/18 13:00 89 16 106/45 L 97 08/08/18 12:00 85 16 103/76 96 08/08/18 11:30 84 18 119/43 L 97 08/08/18 11:16 36.7 C 87 19 126/45 L 88 L - Physical Exam General Appearance: positive: No acute distress, Alert, Other (cachetic) Eyes Bilateral: positive: Normal inspection, PERRL ENT: positive: Dry mucous membranes (edentulous), Other Neck: positive: Nml inspection, Trachea midline Respiratory: positive: No respiratory distress, Breath sounds nml Cardiovascular: positive: Irregularly irregular Peripheral Pulses: positive: 2+ Abdomen: positive: Non-tender, No organomegaly Skin: positive: Warm, Dry, Pallor Neurologic/Psychiatric: positive: Weakness, Other (alert to self, although able to answer simple questions when asked.) Conclusion/Plan - Problem List (1) Failure to thrive in adult Conclusion/Plan: Patient with failure to thrive at home since May. She was recently admitted to [facility] last month and discharged to [facility]. She has since been discharged to home and hospice referral was made. She continues to have minimal PO intake and continues to lose weight. The family brought up the idea of having a feeding tube for nutrition. The patient would not like to have one placed. Plan: make new referral to hospice. Give IVF for dehydration. PO intake for comfort. (2) Dehydration Conclusion/Plan: Patient presented with increased BUN and signs/symptoms of dehyrdration. She was given 500 cc bolud IVF in ER. Plan: Start IVF. Encourage PO intake (3) Hypokalemia Conclusion/Plan: Potassium on admission was 2.4. She not displaying any signs/symptoms of hypokalemia. Plan: replace potassium (4) Leukocytosis Conclusion/Plan: Patient has a WBC of 42 with an elevated BUN in the ER. Unsure what her WBC was at [facility]. In discussing with the family, we will look for a potential cause of the elevated WBC to include a urine and stool culture. Per the ED provider notes, that family does not wish to pursue a bone marrow biopsy. Plan: obtian urine culture and stool culture/cdiff sample as able. As the family wishes to keep the patient comfortable, I will not order labs for the morning. Qualifiers: Leukocytosis type: unspecified Qualified Code(s): D72.829 - Elevated white blood cell count, unspecified (5) Back pain Conclusion/Plan: Patient with intermittent back pain from advanced osteoporosis and previous compression fractures. She takes oxycodone at home as needed. Plan: order oxycodone. Qualifiers: Back pain location: low back pain Chronicity: acute Back pain laterality: left Sciatica presence: without sciatica Qualified Code(s): M54.5 - Low back pain - Lab Results Fish Bones: 08/08/18 14:14 08/08/18 14:14 - Diagnostic Imaging Results Diagnostic Imaging Results: positive: Final report reviewed Diagnostic Imaging Results Comments: CXR 08/08/2018 -- small left pleural effusion and mild bibasilar atelectasis Core Measures - Anticipated LOS I expect patient to be DC'd or transferred within 96 hours.: Yes - DVT/VTE - Prophylaxis VTE/DVT Prophylaxis med ordered at admit?: No Not Ordered - Medical Reason: Contraindicated (Patient is on oral anticoagulation)
[2018-08-08] MEDS ORDERED: POTASSIUM CHLORIDE 20 MEQ TABLET PO ONE (19:32)
[2018-08-08] MEDS ORDERED: oxyCODONE 5 MG TABLET PO PRN (19:32)
[2018-08-08] MEDS: APIXABAN 5 MG TABLET PO SCH (21:06)
[2018-08-08] MEDS: ONDANSETRON ODT 4 MG TABLET TL SCH (21:06)
[2018-08-08] MEDS: POTASSIUM CHLOR 10 MEQ/100 ML 10 MEQ/100 ML BAG IV SCH ×2 (21:06→22:44)
[2018-08-08] MEDS: hydrALAZINE 25 MG TABLET PO SCH (22:42)
[2018-08-09] MEDS: POTASSIUM CHLOR 10 MEQ/100 ML 10 MEQ/100 ML BAG IV SCH ×2 (00:07→01:34)
[2018-08-09] MEDS: ONDANSETRON ODT 4 MG TABLET TL SCH ×6 (00:20→20:04)
[2018-08-09] MEDS: SODIUM CHLORIDE FLUSH 0.9% 10 ML SYRINGE IVP SCH ×4 (05:40→23:40)
[2018-08-09] MEDS: hydrALAZINE 25 MG TABLET PO SCH (06:42)
[2018-08-09] MEDS: SODIUM CHLORIDE 0.9% 1,000 ML IV SCH (06:46)
[2018-08-09] MEDS: POLYETHYLENE GLYCOL 3350 17 GM PACKET PO SCH (07:48)
--- NOTE | 2018-08-09 08:59 | Discharge Plan ---
Discharge Plan Disposition: 50 Hospice/Home DC/Xfer Condition: Poor Diet: Regular Activity Restrictions: No Restrictions Shower Restrictions: No Driving Restrictions: No Weight Bearing: Full Weight Additional Instructions or Follow Up instructions: You were admitted for weakness and dehydration. You also had a low potassium. You were given IV fluids and potassium replacement. Given your persistent diarrhea and severely elevated white blood cell count, your stool was tested and came back positive for an infection called clostridium difficile. You have been sent home to complete a 10 day course of oral vancomycin. Please complete the entire course as prescribed. Per discussion with you and your family to focus on comfort measures, non-essential medications were held during your hospitalization. Eliquis and dilitiazem were continued. Upon discharge, you may resume or continue to hold any of your medications as you wish. No Smoking: If you smoke, Please STOP! Call for help. Follow-up with: Margarita Crum PA-C [Primary Care Provider] -
--- NOTE | 2018-08-09 09:00 | DISCHARGE SUMMARY ---
Discharge Summary Condition at Discharge: Stable - ALLERGIES Allergies/Adverse Reactions: Allergies Allergy/AdvReac Type Severity Reaction Status Date / Time tramadol Allergy Severe Unknown Verified 08/08/18 11:24 codeine Allergy Itching Verified 08/08/18 11:24 - MEDICATIONS Home Medications: Ambulatory Orders Medication Instructions Recorded Confirmed Cholecalciferol (Vitamin D3) 2,000 unit PO DAILY 10/26/13 08/08/18 [Vitamin D] Lisinopril [Prinivil] 20 mg PO BID 10/26/13 08/08/18 Magnesium Oxide [Mag Ox] 400 mg PO DAILY #10 tablet 01/03/16 08/08/18 Apixaban [Eliquis] 5 mg PO BID 08/05/16 08/08/18 Donepezil HCl 10 mg PO QPM 09/29/17 08/08/18 Calcitonin,[place],Synthetic 1 spray DAILY 11/03/17 08/08/18 [Calcitonin-[place]] Calcium Carbonate [[id number]] 500 mg PO DAILY 11/03/17 08/08/18 Diltiazem HCl [Diltiazem 24Hr ER] 180 mg PO DAILY 08/08/18 08/08/18 Esomeprazole Magnesium 40 mg PO QDAC 08/08/18 08/08/18 Ferrous Sulfate [Slow Fe] 142 mg PO DAILY 08/08/18 08/08/18 Hydralazine HCl 50 mg PO TID 08/08/18 08/08/18 Lidocaine Patch 5% [Lidoderm Patch] 1 patch TOP DAILY 08/08/18 08/08/18 Memantine HCl 10 mg PO BID 08/08/18 08/08/18 Ondansetron Odt [Zofran Odt] 4 mg TL Q4H 08/08/18 08/08/18 oxyCODONE [Roxicodone] 2.5 - 5 mg PO Q6H PRN 08/08/18 08/08/18 - LABS Result Diagrams: 08/08/18 14:14 08/08/18 14:14
[2018-08-09] MEDS: LIDOCAINE PATCH 5% TOP SCH (09:50)
[2018-08-09] MEDS: diltiaZEM CD 180 MG CAPSULE PO SCH (09:50)
[2018-08-09] MEDS: APIXABAN 5 MG TABLET PO SCH ×2 (09:51→20:04)
[2018-08-09] MEDS: VANCOMYCIN 125 MG CAPSULE PO SCH ×4 (09:51→20:04)
--- NOTE | 2018-08-09 14:25 | PROVIDER PROGRESS NOTE ---
Subjective - Prog Note Date Prog Note Date: 08/09/18 Prog Note Time: 11:30 - Subjective Subjective: She is awake and alert this morning She is uncomfortable in the bed, requesting pain medication Requesting hot tea Diarrhea continues Patient's c. 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 Current Medications - Current Medications Current Medications: Active Medications Apixaban (Eliquis) 5 mg PO BID [facility] Last Admin: 08/09/18 09:51 Dose: 5 mg Diltiazem HCl (Cardizem Cd) 180 mg PO DAILY [facility] Last Admin: 08/09/18 09:50 Dose: 180 mg Sodium Chloride (Normal Saline 0.9%) 1,000 mls @ 75 mls/hr IV .[id number] [facility] Last Infusion: 08/09/18 14:14 Dose: Infused Lidocaine (Lidoderm Patch) 1 patch TOP DAILY [facility] Last Admin: 08/09/18 09:50 Dose: 1 patch Mineral Oil (Cavilon) 1 applic TOP PRN PRN PRN Reason: Skin Care Multi-Ingredient Ointment (Zinc Oxide) 1 applic TOP PRN PRN PRN Reason: Skin Care Ondansetron HCl (Zofran Odt) 4 mg TL Q4H [facility] Last Admin: 08/09/18 12:22 Dose: 4 mg Oxycodone HCl (Roxicodone) 2.5 mg PO Q6H PRN PRN Reason: back pain Last Admin: 08/09/18 12:22 Dose: 2.5 mg Polyethylene Glycol (Miralax) 17 gm PO DAILY [facility] Last Admin: 08/09/18 07:48 Dose: Not Given Sodium Chloride (Normal Saline Flush 0.9%) 10 ml IVP PRN PRN PRN Reason: NEEDED PER PROVIDER ORDERS Sodium Chloride (Normal Saline Flush 0.9%) 10 ml IVP 0100,0900,1700 [facility] Last Admin: 08/09/18 07:49 Dose: Not Given Vancomycin HCl (Vancocin) 125 mg PO QID [facility] Stop: 08/19/18 09:01 Last Admin: 08/09/18 12:22 Dose: 125 mg Home Medications: Cholecalciferol (Vitamin D3) [Vitamin D] 2,000 unit PO DAILY 10/26/13 Lisinopril [Prinivil] 20 mg PO BID 10/26/13 Apixaban [Eliquis] 5 mg PO BID 08/05/16 Donepezil HCl 10 mg PO QPM 09/29/17 Calcitonin,[place],Synthetic [Calcitonin-[place]] 1 spray DAILY 11/03/17 Calcium Carbonate [[id number]] 500 mg PO DAILY 11/03/17 Diltiazem HCl [Diltiazem 24Hr ER] 180 mg PO DAILY 08/08/18 Esomeprazole Magnesium 40 mg PO QDAC 08/08/18 Ferrous Sulfate [Slow Fe] 142 mg PO DAILY 08/08/18 Hydralazine HCl 50 mg PO TID 08/08/18 Lidocaine Patch 5% [Lidoderm Patch] 1 patch TOP DAILY 08/08/18 Memantine HCl 10 mg PO BID 08/08/18 Ondansetron Odt [Zofran Odt] 4 mg TL Q4H 08/08/18 oxyCODONE [Roxicodone] 2.5 - 5 mg PO Q6H PRN 08/08/18 Objective - Vital Signs/Intake & Output Reviewed Vital Signs: Yes Vital Signs: Vital Signs x48h Temp Pulse Resp BP Pulse Ox 08/09/18 09:01 37.0 C 104 H 16 101/62 94 Intake & Output: Intake & Output 08/06/18 08/07/18 08/08/18 08/09/18 23:59 23:59 23:59 23:59 Intake Total 937.663 6283 Balance 623.982 1214 - Objective General Appearance: positive: No acute distress, Alert Eyes Bilateral: positive: Normal inspection, PERRL ENT: positive: Pharynx nml, Dry mucous membranes Neck: positive: Nml inspection, No JVD Respiratory: positive: No respiratory distress, Breath sounds nml Cardiovascular: positive: Irregularly irregular. negative: Tachycardia Peripheral Pulses: 2+ Dorsalis pedis (R), 2+ Dorsalis pedis (L) Abdomen: positive: Non-tender, Nml bowel sounds, No distention Skin: positive: Warm, Dry Extremities: positive: No pedal edema Neurologic/Psychiatric: positive: Oriented x3, CN's nml (2-12), Motor nml, Sensation nml, Weakness - Lab Results Fish Bones: 08/08/18 14:14 08/08/18 14:14 Other Labs: Lab Results x24hrs 08/08/18 08/08/18 08/08/18 Range/Units 14:37 14:14 14:14 WBC 41.1 H* (4.8-10.8) x10^3/uL RBC 3.75 L (4.20-5.40) 10^6/uL Hgb 11.3 L (12.0-16.0) g/dL Hct 33.6 L (37.0-47.0) % MCV 89.5 (81.0-99.0) fL MCH 30.2 (27.0-31.0) pg MCHC 33.8 (32.0-36.0) g/dL RDW 15.3 H (12.0-15.0) % Plt Count 407 (130-450) 10^3/uL MPV 7.7 L (7.9-10.8) fL Neut # (Auto) 37.4 H (1.5-6.6) 10^3/uL Lymph # (Auto) 1.5 (1.5-3.5) 10^3/uL [place] # (Auto) 1.5 H (0.0-1.0) 10^3/uL Eos # (Auto) 0.4 (0.0-0.7) 10^3/uL Baso # (Auto) 0.2 H (0.0-0.1) 10^3/uL Absolute Nucleated RBC 0.02 x10^3/uL Nucleated RBC % 0.0 /100WBC Manual Slide Review Indicated RBC Morph Micro Appear 1+ ACANTHOCYTES (NORMAL) Sodium 134 L (135-145) mmol/L Potassium 2.4 L* (3.5-5.0) mmol/L Chloride 99 L (101-111) mmol/L Carbon Dioxide 25 (21-32) mmol/L Anion Gap 10.0 (6-13) BUN 21 H (6-20) mg/dL Creatinine 1.0 (0.4-1.0) mg/dL Estimated GFR (MDRD) 52 L (>89) Glucose 125 H (70-100) mg/dL Calcium 7.7 L (8.5-10.3) mg/dL Total Bilirubin 0.9 (0.2-1.0) mg/dL AST 13 (10-42) IU/L ALT 15 (10-60) IU/L Alkaline Phosphatase 101 (42-121) IU/L Total Protein 4.1 L (6.7-8.2) g/dL Albumin 1.8 L (3.2-5.5) g/dL Globulin 2.3 (2.1-4.2) g/dL Albumin/Globulin Ratio 0.8 L (1.0-2.2) Lipase 23 (22-51) U/L Urine Color DARK YELLOW Urine Clarity CLEAR (CLEAR) Urine pH 5.5 (5.0-7.5) PH Ur Specific [place] 1.025 (1.002-1.030) Urine Protein NEGATIVE (NEGATIVE) mg/dL Urine Glucose (UA) NEGATIVE (NEGATIVE) mg/dL Urine Ketones 15 H (NEGATIVE) mg/dL Urine Occult Blood NEGATIVE (NEGATIVE) Urine Nitrite NEGATIVE (NEGATIVE) Urine Bilirubin NEGATIVE (NEGATIVE) Urine Urobilinogen 0.2 (NORMAL) (NORMAL) E.U./dL Ur Leukocyte Esterase NEGATIVE (NEGATIVE) Ur Microscopic Review NOT INDICATED Urine Culture Comments NOT INDICATED C. difficile Tox B Gene (NEGATIVE) 08/08/18 Range/Units 00:15 WBC (4.8-10.8) x10^3/uL RBC (4.20-5.40) 10^6/uL Hgb (12.0-16.0) g/dL Hct (37.0-47.0) % MCV (81.0-99.0) fL MCH (27.0-31.0) pg MCHC (32.0-36.0) g/dL RDW (12.0-15.0) % Plt Count (130-450) 10^3/uL MPV (7.9-10.8) fL Neut # (Auto) (1.5-6.6) 10^3/uL Lymph # (Auto) (1.5-3.5) 10^3/uL [place] # (Auto) (0.0-1.0) 10^3/uL Eos # (Auto) (0.0-0.7) 10^3/uL Baso # (Auto) (0.0-0.1) 10^3/uL Absolute Nucleated RBC x10^3/uL Nucleated RBC % /100WBC Manual Slide Review RBC Morph Micro Appear (NORMAL) Sodium (135-145) mmol/L Potassium (3.5-5.0) mmol/L Chloride (101-111) mmol/L Carbon Dioxide (21-32) mmol/L Anion Gap (6-13) BUN (6-20) mg/dL Creatinine (0.4-1.0) mg/dL Estimated GFR (MDRD) (>89) Glucose (70-100) mg/dL Calcium (8.5-10.3) mg/dL Total Bilirubin (0.2-1.0) mg/dL AST (10-42) IU/L ALT (10-60) IU/L Alkaline Phosphatase (42-121) IU/L Total Protein (6.7-8.2) g/dL Albumin (3.2-5.5) g/dL Globulin (2.1-4.2) g/dL Albumin/Globulin Ratio (1.0-2.2) Lipase (22-51) U/L Urine Color Urine Clarity (CLEAR) Urine pH (5.0-7.5) PH Ur Specific [place] (1.002-1.030) Urine Protein (NEGATIVE) mg/dL Urine Glucose (UA) (NEGATIVE) mg/dL Urine Ketones (NEGATIVE) mg/dL Urine Occult Blood (NEGATIVE) Urine Nitrite (NEGATIVE) Urine Bilirubin (NEGATIVE) Urine Urobilinogen (NORMAL) E.U./dL Ur Leukocyte Esterase (NEGATIVE) Ur Microscopic Review Urine Culture Comments C. difficile Tox B Gene POSITIVE A* (NEGATIVE) Assessment/Plan - Problem List (1) Clostridium difficile infection Impression: Severe with WBC >15k. C. difficile came back positive today. Plan: Vancomycin 125 mg PO QID for 10 days. (2) Failure to thrive in adult Impression: Patient with failure to thrive at home since May. She was recently admitted to [facility] last month and discharged to [facility]. She has since been discharged to home and hospice referral was made. She continues to have minimal PO intake and continues to lose weight. The family brought up the idea of having a feeding tube for nutrition. The patient would not like to have one placed. She received IVF for dehydration Plan: [employer]INEER working on referral to hospice. PO intake for comfort. (3) Dehydration Impression: Patient presented with increased BUN and signs/symptoms of dehyrdration. She was given 500 cc bolus IVF in ER and continued on IVF overnight. Plan: Encourage PO intake (4) Hypokalemia Impression: Potassium on admission was 2.4. She not displaying any signs/symptoms of hypokalemia. Her potassium was repleted. Plan: With the goal of comfort, her potassium was not rechecked. (5) Leukocytosis Impression: Patient has a WBC of 42 with an elevated BUN in the ER. Unsure what her WBC was at [facility]. In discussing with the family, we will look for a potential cause of the elevated WBC to include a urine and stool culture. Per the ED provider notes, that family does not wish to pursue a bone marrow biopsy. C. difficile came back positive. Plan: As the family wishes to keep the patient comfortable, I will not order follow-up CBC. Qualifiers: Leukocytosis type: unspecified Qualified Code(s): D72.829 - Elevated white blood cell count, unspecified (6) Back pain Impression: Patient with intermittent back pain from advanced osteoporosis and previous compression fractures. She takes oxycodone at home as needed. Plan: lidocaine patch and oxycodone as needed. Qualifiers: Back pain location: low back pain Chronicity: acute Back pain laterality: left Sciatica presence: without sciatica Qualified Code(s): M54.5 - Low back pain
[2018-08-09] MEDS ORDERED: TEMAZEPAM 7.5 MG CAPSULE PO PRN (16:04)
[2018-08-09] MEDS: oxyCODONE 5 MG TABLET PO PRN (16:45)
[2018-08-09] MEDS: ZINC OXIDE 20% OINT 28.35 GM TUBE TOP PRN ×2 (17:00→20:00)
[2018-08-10] MEDS: ONDANSETRON ODT 4 MG TABLET TL SCH ×6 (01:11→20:16)
[2018-08-10] MEDS: MIN OIL/DIMETHICON/COCONUT OIL 92 GM TUBE TOP PRN ×4 (01:24→20:15)
[2018-08-10] MEDS: POLYETHYLENE GLYCOL 3350 17 GM PACKET PO SCH (07:35)
[2018-08-10] MEDS: APIXABAN 5 MG TABLET PO SCH ×2 (08:52→20:16)
[2018-08-10] MEDS: LIDOCAINE PATCH 5% TOP SCH (08:52)
[2018-08-10] MEDS: diltiaZEM CD 180 MG CAPSULE PO SCH (08:52)
[2018-08-10] MEDS: oxyCODONE 5 MG TABLET PO PRN ×3 (08:52→20:15)
[2018-08-10] MEDS: VANCOMYCIN 125 MG CAPSULE PO SCH ×4 (08:53→20:15)
--- NOTE | 2018-08-10 11:28 | PROVIDER PROGRESS NOTE ---
Subjective - Prog Note Date Prog Note Date: 08/10/18 Prog Note Time: 11:00 - Subjective Subjective: Ruth reports that she slept well last night Her pain is improved Diarrhea continues Appetite still remains poor On 2L NC is at the bedside Current Medications - Current Medications Current Medications: Active Medications Apixaban (Eliquis) 5 mg PO BID [facility] Last Admin: 08/10/18 08:52 Dose: 5 mg Diltiazem HCl (Cardizem Cd) 180 mg PO DAILY [facility] Last Admin: 08/10/18 08:52 Dose: 180 mg Lidocaine (Lidoderm Patch) 1 patch TOP DAILY [facility] Last Admin: 08/10/18 08:52 Dose: 1 patch Mineral Oil (Cavilon) 1 applic TOP PRN PRN PRN Reason: Skin Care Last Admin: 08/10/18 01:24 Dose: 1 applic Multi-Ingredient Ointment (Zinc Oxide) 1 applic TOP PRN PRN PRN Reason: Skin Care Last Admin: 08/09/18 20:00 Dose: 1 applic Ondansetron HCl (Zofran Odt) 4 mg TL Q4H [facility] Last Admin: 08/10/18 08:52 Dose: 4 mg Oxycodone HCl (Roxicodone) 5 mg PO Q4H PRN PRN Reason: back pain Last Admin: 08/10/18 08:52 Dose: 5 mg Temazepam (Restoril) 7.5 mg PO QPM PRN PRN Reason: Insomnia Last Admin: 08/09/18 20:04 Dose: 7.5 mg Vancomycin HCl (Vancocin) 125 mg PO QID [facility] Stop: 08/19/18 09:01 Last Admin: 08/10/18 08:53 Dose: 125 mg Home medications: Cholecalciferol (Vitamin D3) [Vitamin D] 2,000 unit PO DAILY 10/26/13 Lisinopril [Prinivil] 20 mg PO BID 10/26/13 Apixaban [Eliquis] 5 mg PO BID 08/05/16 Donepezil HCl 10 mg PO QPM 09/29/17 Calcitonin,[place],Synthetic [Calcitonin-[place]] 1 spray DAILY 11/03/17 Calcium Carbonate [[id number]] 500 mg PO DAILY 11/03/17 Diltiazem HCl [Diltiazem 24Hr ER] 180 mg PO DAILY 08/08/18 Esomeprazole Magnesium 40 mg PO QDAC 08/08/18 Ferrous Sulfate [Slow Fe] 142 mg PO DAILY 08/08/18 Hydralazine HCl 50 mg PO TID 08/08/18 Lidocaine Patch 5% [Lidoderm Patch] 1 patch TOP DAILY 08/08/18 Memantine HCl 10 mg PO BID 08/08/18 Ondansetron Odt [Zofran Odt] 4 mg TL Q4H 08/08/18 oxyCODONE [Roxicodone] 2.5 - 5 mg PO Q6H PRN 08/08/18 Objective - Vital Signs/Intake & Output Reviewed Vital Signs: Yes Vital Signs: Vital Signs x48h Temp Pulse Resp BP Pulse Ox 08/10/18 08:00 36.6 C 97 16 119/52 L 97 Intake & Output: Intake & Output 08/07/18 08/08/18 08/09/18 08/10/18 23:59 23:59 23:59 23:59 Intake Total 303.102 4773 Balance 923.146 4850 - Objective General Appearance: positive: No acute distress, Alert Eyes Bilateral: positive: Normal inspection, PERRL, EOMI ENT: positive: Dry mucous membranes Neck: positive: Nml inspection, No JVD Respiratory: positive: No respiratory distress, Breath sounds nml. negative: Wheezes, Rales, Rhonchi Cardiovascular: positive: Irregularly irregular Abdomen: positive: Non-tender, Nml bowel sounds, No distention Skin: positive: Warm, Dry Extremities: positive: Non-tender, No pedal edema Neurologic/Psychiatric: positive: Oriented x3, CN's nml (2-12), Weakness - Lab Results Fish Bones: 08/08/18 14:14 08/08/18 14:14 Assessment/Plan - Problem List (1) Clostridium difficile infection Impression: Severe with WBC count 41 on admission. C. difficile came back positive 08/09/2018. She continues to have diarrhea. Plan: Continue vancomycin 125 mg PO QID for 10 days. (2) Failure to thrive in adult Impression: Patient with failure to thrive at home since May. She was recently admitted to [facility] last month and discharged to [facility]. She has since been discharged to home and hospice referral was made. She continues to have minimal PO intake and continues to lose weight. The family brought up the idea of having a feeding tube for nutrition. The patient would not like to have one placed. She received IVF for dehydration on admission. 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 Encourage PO intake as tolerated (3) Back pain Impression: Patient with intermittent back pain from advanced osteoporosis and previous compression fractures. She takes oxycodone at home as needed. Plan: Lidocaine patch and oxycodone as needed. Qualifiers: Back pain location: low back pain Chronicity: acute Back pain laterality: left Sciatica presence: without sciatica Qualified Code(s): M54.5 - Low back pain (4) Dehydration Impression: Patient presented with increased BUN and signs/symptoms of dehyrdration. She was given 500 cc bolus IV fluids in ER and continued on IV fluids. With the goal of comfort, her IV site went bad and was not replaced. Plan: Encourage PO intake (5) Hypokalemia Impression: Potassium on admission was 2.4. She not displaying any signs/symptoms of hypokalemia. Her potassium was repleted. With the goal of comfort, her potassium was not rechecked. (6) Leukocytosis Impression: Patient had a WBC of 42 with an elevated BUN in the ER. Unsure what her WBC was at [facility]. Stool culture positive for c diff. Per the ED provider notes, the family does not wish to pursue a bone marrow biopsy for work up of leukemia. Plan: As the family wishes to keep the patient comfortable, follow-up CBC's were not ordered. Qualifiers: Leukocytosis type: unspecified Qualified Code(s): D72.829 - Elevated white blood cell count, unspecified
[2018-08-10] MEDS: ZINC OXIDE 20% OINT 28.35 GM TUBE TOP PRN ×2 (17:00→20:15)
[2018-08-11] MEDS: ONDANSETRON ODT 4 MG TABLET TL SCH ×6 (01:34→20:58)
[2018-08-11] MEDS: diltiaZEM CD 180 MG CAPSULE PO SCH (07:42)
[2018-08-11] MEDS: oxyCODONE 5 MG TABLET PO PRN ×4 (07:42→20:58)
[2018-08-11] MEDS: VANCOMYCIN 125 MG CAPSULE PO SCH ×4 (07:42→20:53)
[2018-08-11] MEDS: LIDOCAINE PATCH 5% TOP SCH (07:42)
[2018-08-11] MEDS: APIXABAN 5 MG TABLET PO SCH ×2 (07:43→20:57)
[2018-08-11] MEDS: ZINC OXIDE 20% OINT 28.35 GM TUBE TOP PRN ×5 (07:44→20:54)
[2018-08-11] MEDS: MIN OIL/DIMETHICON/COCONUT OIL 92 GM TUBE TOP PRN ×5 (07:44→20:54)
[2018-08-11] MEDS ORDERED: ACETAMINOPHEN 650 MG SUPP PR PRN (10:44)
[2018-08-11] MEDS ORDERED: ACETAMINOPHEN 325 MG TABLET PO PRN (10:45)
--- NOTE | 2018-08-11 10:46 | PROVIDER PROGRESS NOTE ---
Subjective - Prog Note Date Prog Note Date: 08/11/18 Prog Note Time: 09:15 - Subjective Subjective: Patient slept well last night Her appetite is improved this morning Reports her pain control is better Still with diarrhea, but it is not as frequent on 2L NC Current Medications - Current Medications Current Medications: Active Medications Acetaminophen (Tylenol) 650 mg [place] Q6HR PRN PRN Reason: Pain or Fever > 38C (100.4F) Acetaminophen (Tylenol) 650 mg PO Q6HR PRN PRN Reason: Pain or Fever > 38C (100.4F) Apixaban (Eliquis) 5 mg PO BID [facility] Last Admin: 08/11/18 07:43 Dose: 5 mg Diltiazem HCl (Cardizem Cd) 180 mg PO DAILY [facility] Last Admin: 08/11/18 07:42 Dose: 180 mg Lidocaine (Lidoderm Patch) 1 patch TOP DAILY [facility] Last Admin: 08/11/18 07:42 Dose: 1 patch Mineral Oil (Cavilon) 1 applic TOP PRN PRN PRN Reason: Skin Care Last Admin: 08/11/18 07:44 Dose: 1 applic Multi-Ingredient Ointment (Zinc Oxide) 1 applic TOP PRN PRN PRN Reason: Skin Care Last Admin: 08/11/18 07:44 Dose: 1 applic Ondansetron HCl (Zofran Odt) 4 mg TL Q4H [facility] Last Admin: 08/11/18 07:42 Dose: 4 mg Oxycodone HCl (Roxicodone) 5 mg PO Q4H PRN PRN Reason: back pain Last Admin: 08/11/18 07:42 Dose: 5 mg Temazepam (Restoril) 7.5 mg PO QPM PRN PRN Reason: Insomnia Last Admin: 08/09/18 20:04 Dose: 7.5 mg Vancomycin HCl (Vancocin) 125 mg PO QID [facility] Stop: 08/19/18 09:01 Last Admin: 08/11/18 07:42 Dose: 125 mg Home Medications: Cholecalciferol (Vitamin D3) [Vitamin D] 2,000 unit PO DAILY 10/26/13 Lisinopril [Prinivil] 20 mg PO BID 10/26/13 Apixaban [Eliquis] 5 mg PO BID 08/05/16 Donepezil HCl 10 mg PO QPM 09/29/17 Calcitonin,[place],Synthetic [Calcitonin-[place]] 1 spray DAILY 11/03/17 Calcium Carbonate [[id number]] 500 mg PO DAILY 11/03/17 Diltiazem HCl [Diltiazem 24Hr ER] 180 mg PO DAILY 08/08/18 Esomeprazole Magnesium 40 mg PO QDAC 08/08/18 Ferrous Sulfate [Slow Fe] 142 mg PO DAILY 08/08/18 Hydralazine HCl 50 mg PO TID 08/08/18 Lidocaine Patch 5% [Lidoderm Patch] 1 patch TOP DAILY 08/08/18 Memantine HCl 10 mg PO BID 08/08/18 Ondansetron Odt [Zofran Odt] 4 mg TL Q4H 08/08/18 oxyCODONE [Roxicodone] 2.5 - 5 mg PO Q6H PRN 08/08/18 Objective - Vital Signs/Intake & Output Reviewed Vital Signs: Yes Vital Signs: Vital Signs x48h Temp Pulse Resp BP Pulse Ox 08/11/18 07:56 36.4 C L 91 16 136/44 H 97 08/11/18 04:38 36.4 C L 93 18 132/45 H 97 Intake & Output: Intake & Output 08/08/18 08/09/18 08/10/18 08/11/18 23:59 23:59 23:59 23:59 Intake Total 529.206 1894 315 465 Output Total 5 Balance 577.299 3103 310 465 - Objective General Appearance: positive: No acute distress, Alert, Other (cachetic) Eyes Bilateral: positive: Normal inspection, PERRL, EOMI ENT: positive: Dry mucous membranes Neck: positive: Nml inspection, Trachea midline Respiratory: positive: No respiratory distress, Breath sounds nml Cardiovascular: positive: Irregularly irregular. negative: Tachycardia Abdomen: positive: Non-tender, Nml bowel sounds, No distention Skin: positive: Warm, Dry Extremities: positive: No pedal edema Neurologic/Psychiatric: positive: Oriented x3, Motor nml, Sensation nml, Weakness - Lab Results Fish Bones: 08/08/18 14:14 08/08/18 14:14 Assessment/Plan - Problem List (1) Clostridium difficile infection Impression: Severe with WBC count 41 on admission. C. difficile came back positive 08/09/2018. She continues to have diarrhea. Plan: Continue vancomycin 125 mg PO QID for 10 days. (2) Failure to thrive in adult Impression: Patient with failure to thrive at home since May. She was recently admitted to [facility] last month and discharged to [facility]. She has since been discharged to home and hospice referral was made. She continues to have minimal PO intake and continues to lose weight. The family brought up the idea of having a feeding tube for nutrition. The patient would not like to have one placed. She received IVF for dehydration on admission. Plan: [employer] working on referral to hospice, awaiting delivery of home equipment Encourage PO intake as tolerated (3) Back pain Impression: Patient with intermittent back pain from advanced osteoporosis and previous compression fractures. She takes oxycodone at home as needed. Plan: Lidocaine patch and oxycodone as needed. Will add tylenol today Qualifiers: Back pain location: low back pain Chronicity: acute Back pain laterality: left Sciatica presence: without sciatica Qualified Code(s): M54.5 - Low back pain (4) Dehydration Impression: Patient presented with increased BUN and signs/symptoms of dehyrdration. She was given 500 cc bolus IV fluids in ER and continued on IV fluids. With the goal of comfort, her IV site went bad and was not replaced. Plan: Encourage PO intake (5) Hypokalemia Impression: Potassium on admission was 2.4. She is not displaying any signs/symptoms of hypokalemia. Her potassium was repleted. With the goal of comfort, her potassium was not rechecked. (6) Leukocytosis Impression: Patient had a WBC of 42 with an elevated BUN in the ER. Unsure what her WBC was at [facility]. Stool culture positive for c diff. Per the ED provider notes, the family does not wish to pursue a bone marrow biopsy for work up of leukemia. Plan: As the family wishes to keep the patient comfortable, follow-up CBC was not ordered. Qualifiers: Leukocytosis type: unspecified Qualified Code(s): D72.829 - Elevated white blood cell count, unspecified
[2018-08-12] MEDS: ONDANSETRON ODT 4 MG TABLET TL SCH ×6 (00:38→21:10)
[2018-08-12] MEDS: MIN OIL/DIMETHICON/COCONUT OIL 92 GM TUBE TOP PRN ×2 (00:57→05:08)
[2018-08-12] MEDS: oxyCODONE 5 MG TABLET PO PRN ×2 (08:44→21:10)
[2018-08-12] MEDS: VANCOMYCIN 125 MG CAPSULE PO SCH ×4 (08:45→21:11)
[2018-08-12] MEDS: diltiaZEM CD 180 MG CAPSULE PO SCH (08:45)
[2018-08-12] MEDS: APIXABAN 5 MG TABLET PO SCH ×2 (08:45→21:11)
[2018-08-12] MEDS: LIDOCAINE PATCH 5% TOP SCH (08:49)
--- NOTE | 2018-08-12 10:41 | PROVIDER PROGRESS NOTE ---
Subjective - Prog Note Date Prog Note Date: 08/12/18 Prog Note Time: 08:45 - Subjective Subjective: Patient denies pain for me Appetite is minimal Diarrhea has slowed down Nursing noted blanchable redness to patient's spine and sacrum INTERNATIONAL NURSE is working on setting up hospice services Current Medications - Current Medications Current Medications: Active Medications Acetaminophen (Tylenol) 650 mg NC Q6HR PRN PRN Reason: Pain or Fever > 38C (100.4F) Acetaminophen (Tylenol) 650 mg PO Q6HR PRN PRN Reason: Pain or Fever > 38C (100.4F) Apixaban (Eliquis) 5 mg PO BID [facility] Last Admin: 08/12/18 08:45 Dose: 5 mg Diltiazem HCl (Cardizem Cd) 180 mg PO DAILY [facility] Last Admin: 08/12/18 08:45 Dose: 180 mg Lidocaine (Lidoderm Patch) 1 patch TOP DAILY [facility] Last Admin: 08/12/18 08:49 Dose: 1 patch Mineral Oil (Cavilon) 1 applic TOP PRN PRN PRN Reason: Skin Care Last Admin: 08/12/18 05:08 Dose: 1 applic Multi-Ingredient Ointment (Zinc Oxide) 1 applic TOP PRN PRN PRN Reason: Skin Care Last Admin: 08/11/18 20:54 Dose: 1 applic Ondansetron HCl (Zofran Odt) 4 mg TL Q4H [facility] Last Admin: 08/12/18 08:45 Dose: 4 mg Oxycodone HCl (Roxicodone) 5 mg PO Q4H PRN PRN Reason: back pain Last Admin: 08/12/18 08:44 Dose: 5 mg Temazepam (Restoril) 7.5 mg PO QPM PRN PRN Reason: Insomnia Last Admin: 08/09/18 20:04 Dose: 7.5 mg Vancomycin HCl (Vancocin) 125 mg PO QID [facility] Stop: 08/19/18 09:01 Last Admin: 08/12/18 08:45 Dose: 125 mg Home Medications: Cholecalciferol (Vitamin D3) [Vitamin D] 2,000 unit PO DAILY 10/26/13 Lisinopril [Prinivil] 20 mg PO BID 10/26/13 Apixaban [Eliquis] 5 mg PO BID 08/05/16 Donepezil HCl 10 mg PO QPM 09/29/17 Calcitonin,[place],Synthetic [Calcitonin-[place]] 1 spray DAILY 11/03/17 Calcium Carbonate [[id number]] 500 mg PO DAILY 11/03/17 Diltiazem HCl [Diltiazem 24Hr ER] 180 mg PO DAILY 08/08/18 Esomeprazole Magnesium 40 mg PO QDAC 08/08/18 Ferrous Sulfate [Slow Fe] 142 mg PO DAILY 08/08/18 Hydralazine HCl 50 mg PO TID 08/08/18 Lidocaine Patch 5% [Lidoderm Patch] 1 patch TOP DAILY 08/08/18 Memantine HCl 10 mg PO BID 08/08/18 Ondansetron Odt [Zofran Odt] 4 mg TL Q4H 08/08/18 oxyCODONE [Roxicodone] 2.5 - 5 mg PO Q6H PRN 08/08/18 Objective - Vital Signs/Intake & Output Reviewed Vital Signs: Yes Vital Signs: Vital Signs x48h Temp Pulse Resp BP Pulse Ox 08/12/18 07:59 36.5 C 92 16 128/56 L 98 08/12/18 05:06 36.4 C L 98 16 95 Intake & Output: Intake & Output 08/09/18 08/10/18 08/11/18 08/12/18 23:59 23:59 23:59 23:59 Intake Total 2205 315 1265 360 Output Total 5 Balance 2205 310 1265 360 - Objective General Appearance: positive: No acute distress, Alert Eyes Bilateral: positive: Normal inspection, PERRL ENT: positive: Dry mucous membranes Neck: positive: Nml inspection, Trachea midline Respiratory: positive: Chest non-tender, Breath sounds nml Cardiovascular: positive: Irregularly irregular. negative: Tachycardia Peripheral Pulses: 2+ Dorsalis pedis (R), 2+ Dorsalis pedis (L) Abdomen: positive: Non-tender, Nml bowel sounds, No distention. negative: Guarding, Rebound Skin: positive: Warm, Dry, Pallor Neurologic/Psychiatric: positive: Oriented x3, CN's nml (2-12), Mood/affect nml, Weakness - Lab Results Fish Bones: 08/08/18 14:14 08/08/18 14:14 Assessment/Plan - Problem List (1) Clostridium difficile infection Impression: Severe, with WBC count 41 on admission. C. difficile came back positive 08/09/2018. She continues to have diarrhea, although frequency has decresed dramatically. Plan: Continue vancomycin 125 mg PO QID for total 10 days of treatment (2) Failure to thrive in adult Impression: Patient with failure to thrive at home since May. She was recently admitted to [facility] last month and discharged to [facility]. She has since been discharged to home and hospice referral was made. She continued to have minimal PO intake and continued to lose weight. The family brought up the idea of having a feeding tube for nutrition. The patient would not like to have one placed. She received IVF for dehydration on admission. Her appetite remains minimal. Plan: Encourage PO intake as tolerated INTERNATIONAL NURSE working on referral to hospice, awaiting delivery of home equipment, likely to occur tomorrow. (3) Back pain Impression: Patient with intermittent back pain from advanced osteoporosis and previous compression fractures. She takes oxycodone at home as needed. Her pain has improved. Plan: Lidocaine patch and oxycodone as needed. Qualifiers: Back pain location: low back pain Chronicity: acute Back pain laterality: left Sciatica presence: without sciatica Qualified Code(s): M54.5 - Low natalya k pain (4) Dehydration Impression: Patient presented with increased BUN and signs/symptoms of dehyrdration. She was given 500 cc bolus IV fluids in ER and continued on IV fluids. With the goal of comfort, her IV site went bad and was not replaced. Plan: Encourage PO intake (5) At risk for impaired skin integrity: Patient with minimal appetite, increased weakness, and low weight, patient has multiple areas of blanchable redness to her bony prominences Plan: frequent turning/repositioning foam dressing for protection
[2018-08-12] MEDS ORDERED: CALCIUM CARBONATE CHEW 500 MG TABLET PO PRN (18:35)
[2018-08-13] MEDS: ONDANSETRON ODT 4 MG TABLET TL SCH ×4 (00:26→12:33)
[2018-08-13] MEDS: oxyCODONE 5 MG TABLET PO PRN ×2 (05:10→13:08)
[2018-08-13] MEDS: APIXABAN 5 MG TABLET PO SCH (08:04)
[2018-08-13] MEDS: VANCOMYCIN 125 MG CAPSULE PO SCH ×2 (08:04→12:33)
[2018-08-13] MEDS: diltiaZEM CD 180 MG CAPSULE PO SCH (08:04)
--- NOTE | 2018-08-13 08:36 | Discharge Plan ---
Discharge Plan Disposition: 50 Hospice/Home DC/Xfer Condition: Poor Prescriptions: oxyCODONE [Roxicodone] 5 mg PO Q4H PRN #30 tablet PRN Reason: back pain Vancomycin [Vancocin] 125 mg PO QID #24 capsule Diet: Regular Activity Restrictions: No Restrictions Shower Restrictions: No Driving Restrictions: No Weight Bearing: Full Weight Instruction Topics: Vancomycin capsules, Pressure Ulcer Foot, Pressure Injury Protect Patient, Pressure Ulcer How Form, Pressure Ulcer Common Sites, Pressure Ulcer Reduce Patient Risk, Pressure Ulcer Prevent, Clostridium Difficile Infec Additional Instructions or Follow Up instructions: You were admitted for weakness and dehydration. You also had a low potassium level. You were given IV fluids and potassium replacement. Given your persistent diarrhea and severely elevated white blood cell count, your stool was tested and came back positive for an infection called clostridium difficile. You have been sent home to complete a 10 day course of oral vancomycin. Please complete the entire course as prescribed. Per discussion with you and your family to focus on comfort measures, non-essential medications were held during your hospitalization. Eliquis and dilitiazem were continued. You are being discharge home with hospice services. No Smoking: If you smoke, Please STOP! Call for help. Follow-up with: Margarita Crum PA-C [Primary Care Provider] -
--- NOTE | 2018-08-13 08:37 | DISCHARGE SUMMARY ---
Discharge Summary Admit Date: 08/08/18 Discharge Date: 08/13/18 Discharging Provider: Anni CHAUDHARI Primary Care Provider: Margarita LAU Code Status: Do Not Attempt Resuscitation Condition at Discharge: Poor Discharge Disposition: 50 Hospice/Home DC/Xfer - DIAGNOSES Admission Diagnoses: Failure to thrive in adult Dehydration Hypokalemia Leukocytosis Back pain Discharge Diagnoses with Status of Each Condition: Clostridium difficile, severe, improved Failure to thrive in adult, ongoing Dehydration, improved Hypokalemia, improved Leukocytosis, ongoing Back pain, ongoing At risk for impaired skin integrity, ongoing - HPI History of Present Illness: Delia Looney (Dolly) is an 87 year old female with a past medical history significant for CAD, CHF, atrial fibrillation on eliquis, HTN, vertebral fractures T6, L1 and dementia. She presents to the ER today for dehydration and weakness. She was hospitalized at [facility] in early July for increased weakness, anorexia with unrelieved nausea and general failutre to thrive at home. She had persistent leukocytosis and underwent an EUS where a nodule was discovered. Patient sees Dr. 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 She was discharged to [facility] and discharged home on 08/03/2018. A hospice implant coordinator evaluated Ruth today and advised her to seek evaluation in the ER. Her and son say that Ruth has not had much of an appetite since May, and they are not sure why. She has had bouts of d iarrhea, most recently she has been having diarrhea every 6-7 hours, per . Patient has had about a #20lb weight loss in the last couple of months. In the ER, she was found to have an elevated white blood cell count and hypokalemia. She was given 500 cc normal saline bolus. In evaluation of the patient, her and son are at the bedside. She is laying comfortable in the bed and requesting some hot tea. The family's goal of hospitalization is to maintain comfort, while stabilizing her. She lives at home with her . Her son lives roughly 30 minutes nearby. At home, she walks wi th assistance by holding onto people. She is resistant to using a walker. Her reports that she has advanced osteoporsis with previous compression fractures and takes oxycodone periodically at home for the pain. Patient and her family wishes for her to be a DNR. - HOSPITAL COURSE Hospital Course: Ruth was admitted for failure to thrive and persistent diarrhea at home. Per her family, she has had failure to thrive at home since May. She was recently admitted to [facility] in July and discharged to [facility]. She has since been discharged to home and hospice referral was made. On the day of admission, a hospice implant coordinator evaluated the patient and referred the patient to the ER. In the ER, she was found to be dehydrated and received IV fluids. IV fluid hydration continued until her IV infiltrated and a new one was not replaced. Her oral liquid intake improved throughout her hospitalization, but appetite remains poor. Her WBC count was quite elevated to 42 upon presentation. Unsure what her WBC was at [facility]. In discussing with the family, we looked for a potential cause of the elevated WBC. Per the ED provider notes, the family did not wish to pursue a bone marrow biopsy. Urine culture, stool culture and c diff were sent. She was c. diff positive. Urine and stool cultures were negative. She was started on oral vancomycin. He diarrhea has since slowed down. Her appetite remains poor. She is discharging to complete 10 days of oral vancomycin. For Ruth's intermittent back pain from advanced osteoporosis and previous compression fractures her home lidocaine patch and oxycodone were continued. Given Ruth's low body weight, she was at risk for impaired skin integrity. She had multiple areas of blanchable redness to her bony prominences. Foam dressings were applied for protection. Goals of care discussions were had on multiple occasions with the patient, her Ravinder and son Catherine. The patient and familys goals were to keep the patient comfortable. Early in her hospitalization, her son suggested the idea of placing a feeding tube given her poor appetite. The patient did not want one placed. Non-essential medications were discontinued, but her eliquis and diltiazem were continued. DRY ROLLER worked to get hospice set up. She will discharge home today with hospice. - ALLERGIES Allergies/Adverse Reactions: Allergies Allergy/AdvReac Type Severity Reaction Status Date / Time tramadol Allergy Severe Unknown Verified 08/08/18 11:24 codeine Allergy Itching Verified 08/08/18 11:24 - MEDICATIONS Home Medications: Ambulatory Orders Medication Instructions Recorded Confirmed Apixaban [Eliquis] 5 mg PO BID 08/05/16 08/08/18 Diltiazem HCl [Diltiazem 24Hr ER] 180 mg PO DAILY 08/08/18 08/08/18 Esomeprazole Magnesium 40 mg PO QDAC 08/08/18 08/08/18 Lidocaine Patch 5% [Lidoderm Patch] 1 patch TOP DAILY 08/08/18 08/08/18 Ondansetron Odt [Zofran Odt] 4 mg TL Q4H 08/08/18 08/08/18 Acetaminophen [Tylenol] 650 mg PO Q6HR PRN tablet 08/13/18 Calcium Carbonate [Tums (Calcium 500 mg PO Q6H PRN tablet 08/13/18 Carbonate 500mg)] Vancomycin [Vancocin] 125 mg PO QID #24 capsule 08/13/18 oxyCODONE [Roxicodone] 5 mg PO Q4H PRN #30 tablet 08/13/18 - PHYSICAL EXAM AT DISCHARGE General Appearance: positive: No acute distress, Alert, Other (cachetic) Eyes Bilateral: positive: Normal inspection, PERRL, EOMI, Other (wearing glasses) ENT: positive: Dry mucous membranes Neck: positive: Nml inspection, Trachea midline Respiratory: positive: Chest non-tender, No respiratory distress, Breath sounds nml (diminished bases). negative: Wheezes, Rales, Rhonchi Cardiovascular: positive: Irregularly irregular, Systolic murmur. negative: No gallop, Tachycardia Peripheral Pulses: positive: 1+ Abdomen: positive: Non-tender, Nml bowel sounds, No distention. negative: Guarding, Rebound Skin: positive: Warm, Dry Extremities: positive: No pedal edema Neurologic/Psychiatric: positive: Oriented x3, CN's nml (2-12), Sensation nml, Weakness - LABS Result Diagrams: 08/08/18 14:14 08/08/18 14:14 - DIAGNOSTIC IMAGING Diagnostic Imaging Results: Final report reviewed Diagnostic Imaging Results Comments: CXR 08/08/2018 -- 1-view CXR new small left pleural effusion. Bibasilar atelectasis. - FOLLOW UP Follow Up: Follow-up with hospice provider to determine POC. - TIME SPENT Time Spent in Discharge (Minutes): 45
[2018-08-13] MEDS: LIDOCAINE PATCH 5% TOP SCH (10:29)
[2018-08-13 11:52] VITALS: BP 120/46
== END 2018-08-13 14:55 | disposition hospice, home (50) ==
LOC: EDUNIT# → ED 11:10 → MS2 15:07 → OBS 19:08
PROVIDERS: ADMIT Nurse Practitioner; ATTEND Nurse Practitioner
DX: A04.72 Enterocolitis due to Clostridium difficile, not specified as recurrent (principal); R62.7 Adult failure to thrive; Z68.1 Body mass index [BMI] 19.9 or less, adult; E87.6 Hypokalemia; E86.0 Dehydration; D72.829 Elevated white blood cell count, unspecified; I11.0 Hypertensive heart disease with heart failure; I50.9 Heart failure, unspecified; I48.2 Chronic atrial fibrillation; I25.10 Atherosclerotic heart disease of native coronary artery without angina pectoris; F03.90 Unspecified dementia, unspecified severity, without behavioral disturbance, psychotic disturbance, mood disturbance, and anxiety; E78.00 Pure hypercholesterolemia, unspecified; I73.9 Peripheral vascular disease, unspecified; D13.1 Benign neoplasm of stomach; M81.0 Age-related osteoporosis without current pathological fracture; R32 Unspecified urinary incontinence; K21.9 Gastro-esophageal reflux disease without esophagitis; H35.30 Unspecified macular degeneration; H91.90 Unspecified hearing loss, unspecified ear; G89.29 Other chronic pain; M54.9 Dorsalgia, unspecified; F50.89 Other specified eating disorder; Z51.5 Encounter for palliative care; Z79.01 Long term (current) use of anticoagulants; Z79.891 Long term (current) use of opiate analgesic; Z87.440 Personal history of urinary (tract) infections; Z87.310 Personal history of (healed) osteoporosis fracture; L98.8 Other specified disorders of the skin and subcutaneous tissue
CPT/HCPCS: 36415; 71045; 80053; 81003; 83690; 85025; 87045; 87046; 87493; 96361; 96365; 96366; 99284; A6250; A9270; G0378; J8499; Q0162; 81001; 87086; 96360; 99285

== ENCOUNTER 2018-08-13 15:10 | Outpatient (CLI) | payer MEDICARE, OTHER | END 2018-08-13 15:11 | disposition home or self-care (01) | LOC: EMS 15:10 | PROVIDERS: ATTEND Surgery | DX: Z74.01 Bed confinement status (principal) | CPT/HCPCS: A0425; A0428 ==

== ENCOUNTER 2018-08-28 15:30 | Outpatient (CLI) | payer MEDICARE, OTHER | END 2018-08-28 23:59 | disposition home or self-care (01) | LOC: LAB.R 15:30 | PROVIDERS: ATTEND Family Medicine | DX: C49.A2 Gastrointestinal stromal tumor of stomach (principal) | CPT/HCPCS: 87493 ==